=== PATIENT | female | born 1945 | race Caucasian/White ===

== ENCOUNTER → 2016-07-26 | Outpatient (CLI) | payer BC ==
[~2016-07-26] MED LIST: LOVA40TA2 PO; METF-620 PO; OMEG1CAP43 PO; VITA400C34 PO
--- NOTE | 2016-07-26 14:52 | EKG ---
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
[2016-07-26 15:04] LABS: BASO # 0.1 x10^3/uL (0.0-0.2); BASO % 1 % (0-3); EOS % 2 % (0-3); HEMATOCRIT 41.7 % (36.0-47.0); LYMPH # 4.4 x10^3/uL (1.0-4.8); LYMPH % 50 % (24-48); MEAN CORPUSCULAR HEMOGLOBIN 28 pg (25-35); MEAN CORPUSCULAR HGB CONC 34 g/dL (31-37); MEAN CORPUSCULAR VOLUME 84 fL (79-100); MONO % 6 % (0-9); NEUT % 41 % (31-73); PLATELET COUNT 248 x10^3/uL (140-400); RED BLOOD COUNT 4.99 x10^6/uL (3.50-5.40); RED CELL DISTRIBUTION WIDTH 14.3 % (11.5-14.5); WHITE BLOOD COUNT 8.9 x10^3/uL (4.0-11.0)
[2016-07-26 15:29] LABS: ALBUMIN 3.5 g/dL (3.4-5.0); ALBUMIN/GLOBULIN RATIO 0.8 (1.0-1.7); CALCIUM 8.9 mg/dL (8.5-10.1); CREATININE 0.9 mg/dL (0.6-1.0); GFR 61.9; POTASSIUM 3.6 mmol/L (3.5-5.1); TOTAL BILIRUBIN 0.8 mg/dL (0.2-1.0); TOTAL PROTEIN 7.8 g/dL (6.4-8.2)
== END | disposition home or self-care (01) ==
LOC: SURGPAT 14:02
PROVIDERS: ATTEND Obstetrics & Gynecology
DX: Z01.812 Encounter for preprocedural laboratory examination (principal); Z78.0 Asymptomatic menopausal state; E11.9 Type 2 diabetes mellitus without complications
CPT/HCPCS: 36415; 80053; 83036; 85027; 93005

== ENCOUNTER 2016-08-03 05:42 | Observation (INO) | payer BC ==
[~2016-08-03] VITALS: Ht 162.6 cm; Wt 78.9 kg
[2016-08-03] VITALS (10 sets, daily range): BP systolic 123–175; BP diastolic 56–74
[2016-08-03] MEDS ORDERED: IV RINGERS,LACTATED 1000ML 1,000 ML IV SCH (06:18)
[2016-08-03] MEDS ORDERED: ONDANSETRON PF 4 MG/2 ML VIAL. IV PRN ×2 (06:30→09:30)
[2016-08-03] MEDS ORDERED: PROCHLORPERAZINE 10 MG/2 ML VIAL. IV PRN (06:30)
[2016-08-03] MEDS ORDERED: LIDOCAINE 1% 1 ML SYRINGE. ID PRN (06:30)
[2016-08-03] MEDS ORDERED: fentaNYL PF VIAL 100 MCG/2 ML VIAL IV PRN ×2 (06:30)
[2016-08-03] MEDS ORDERED: HYDROmorphone 2 MG/ML VIAL IV PRN ×2 (06:30→09:30)
[2016-08-03] MEDS ORDERED: MORPHINE SULFATE 2 MG/ML DISP.SYRIN. IV PRN (06:30)
[2016-08-03] MEDS ORDERED: LIDOCAINE 2% PF Vial for OR 5 ML VIAL. ONE (07:12)
[2016-08-03] MEDS ORDERED: PROPOFOL 20 ML IV ONE (07:12)
[2016-08-03] MEDS ORDERED: fentaNYL PF VIAL 100 MCG/2 ML VIAL ONE ×2 (07:12→07:54)
[2016-08-03] MEDS ORDERED: ONDANSETRON PF 4 MG/2 ML VIAL. ONE (07:12)
[2016-08-03] MEDS ORDERED: DEXAMETHASONE SOD PHOS 20 MG/5 ML VIAL. ONE (07:12)
[2016-08-03] MEDS ORDERED: FAMOTIDINE 20 MG/2 ML VIAL ONE (07:12)
[2016-08-03] MEDS ORDERED: ROCURONIUM 50 MG/5 ML VIAL. ONE (07:12)
[2016-08-03] MEDS ORDERED: METHYLENE BLUE 1% 1 ML VIAL. ONE (07:14)
[2016-08-03] MEDS ORDERED: BUPIVACAINE-EPI 0.25%-1:200000 50 ML VIAL. ONE (07:14)
[2016-08-03] MEDS ORDERED: ESTROGENS, CONJ VAGINAL CREAM 30GM TUBE. ONE (07:15)
[2016-08-03] MEDS ORDERED: BUPIVACAINE-EPI 0.25%-1:200000 MPF 30 ML VIAL. ONE (07:16)
[2016-08-03] MEDS ORDERED: LABETALOL 20 MG/4 ML DISP.SYRIN. ONE (08:10)
[2016-08-03] MEDS ORDERED: DESFLURANE > 120 MINUTES IH ONE (08:34)
[2016-08-03] MEDS ORDERED: NEOSTIGMINE METHYLSULFATE 5 MG/5 ML SYRINGE. ONE (09:10)
--- NOTE | 2016-08-03 09:22 | PDOC ---
BRIEF OPERATIVE NOTE Date: August 03, 2016 Pre-Op Diagnosis pelvic organ prolapse including uterus, cystocele, rectocele, and urinary incontinence Post-Op Diagnosis same Procedure Performed lavh and bso with A and P repair Surgeon Mera Block Hand Jose Anesthesiologist Ian Anesthesia Type: General Blood Loss 50cc IV Fluid see anesthesia Urine Output see anesthesia- urine was clear throughout case Specimens Obtained uterus, tubes, ovaries Findings see dictation- prolapse Complications none TITO CARROLL MD August 03, 2016 09:22
--- NOTE | 2016-08-03 09:23 | DISCH ---
DISCHARGE INSTRUCTIONS Condition on Discharge Condition on Discharge: Stable Activity After Discharge Activity Instructions for Disc: Activity as tolerated, Progressive ambulation Lifting Instructions after Dis: No heavy lifting, No pulling or pushing, Do not lift >10 pounds Exercise Instruction after Dis: Exercise per therapy Driving Instructions after Dis: No driving for 2 weeks Weight Bearing Status after Di: Full weight bearing, As tolerated Diet after Discharge Diet after Discharge: Regular Wound Incision Care Wound/Incision Care: Ice to area for comfort Contacting the DRJoshua after DC Call your doctor for: If your condition worsens Follow-Up Follow up with: 1 week with TITO Bourne MD August 03, 2016 09:23
[2016-08-03] MEDS ORDERED: KETOROLAC TROMETHAMINE 30 MG/ML INJ. IV PRN (09:30)
[2016-08-03] MEDS ORDERED: SIMETHICONE 80 MG TAB.CHEW PO PRN (09:30)
[2016-08-03] MEDS ORDERED: diphenhydrAMINE 50 MG/ML VIAL IV PRN (09:30)
[2016-08-03] MEDS ORDERED: diphenhydrAMINE HCL 25 MG CAPSULE PO PRN (09:30)
[2016-08-03] MEDS ORDERED: IBUPROFEN 600 MG TABLET. PO PRN (09:30)
[2016-08-03] MEDS ORDERED: HYDROmorphone 2 MG/ML VIAL IM PRN (09:30)
[2016-08-03] MEDS ORDERED: oxyCODONE/APAP 5/325 1 TAB TABLET PO PRN (09:30)
[2016-08-03] MEDS ORDERED: DEXTROSE 50% 25 GM / 50ML DISP.SYRIN. IV PRN (09:30)
[2016-08-03] MEDS ORDERED: MAG HYDROX/ALUMINUM HYD/SIMETH 30 ML ORAL.SUSP PO PRN (09:30)
[2016-08-03] MEDS ORDERED: HYDROcodone/APAP 5/325MG 1 TAB TABLET PO PRN (09:30)
[2016-08-03] MEDS ORDERED: ZOLPIDEM 5 MG TABLET. PO PRN (09:30)
[2016-08-03] MEDS ORDERED: LACTULOSE 20 GM/30 ML SOLUTION. PO PRN (09:30)
[2016-08-03] MEDS ORDERED: 0.9 % SODIUM CHLORIDE 10 ML DISP.SYRIN. IV PRN (09:30)
[2016-08-03] MEDS ORDERED: METOCLOPRAMIDE HCL 10 MG/2 ML VIAL. IV PRN (09:30)
[2016-08-03] MEDS ORDERED: BISACODYL 10 MG SUPP.RECT. PR PRN (09:30)
[2016-08-03] MEDS ORDERED: NALOXONE 0.4 MG/ML VIAL. IV PRN (09:30)
[2016-08-03] MEDS ORDERED: ALBUTEROL SULFATE 2.5 MG/3 ML NEBU. NEB PRN (09:30)
[2016-08-03] MEDS ORDERED: CALCIUM CARBONATE 500 MG TAB.CHEW PO PRN (09:30)
[2016-08-03] MEDS: INSULIN ASPART 300 UNITS/3 ML INSULN.PEN SQ SCH (12:00)
--- NOTE | 2016-08-03 12:28 | OP ---
DATE OF SURGERY: PREOPERATIVE DIAGNOSES: Pelvic organ prolapse, including uterus, cystocele, rectocele, and urinary incontinence. POSTOPERATIVE DIAGNOSES: Pelvic organ prolapse, including uterus, cystocele, rectocele, and urinary incontinence. PROCEDURE: Laparoscopic-assisted vaginal hysterectomy with bilateral salpingo-oophorectomy, anterior and posterior repair. SURGEON: Adriana Carroll MD ANESTHESIA: General. COMPLICATIONS: None. ESTIMATED BLOOD LOSS: 50 mL. URINE OUTPUT: Normal and clear throughout the case. SPECIMENS OBTAINED: Uterus, tubes, and ovaries. COMPLICATIONS: None. DESCRIPTION OF PROCEDURE: After informed consent was obtained, the patient was taken to the operating room and given a smooth induction of anesthesia without complications. Her legs were placed in Michael stirrups and her abdomen, perineum, and vagina were prepped and draped in the usual sterile fashion. She received a gram of Ancef prior to the procedure. A Alvarado catheter was placed. A weighted speculum was placed in the vagina and the anterior lip of the cervix was grasped with a single tooth tenaculum. Cervix was injected with 0.25% Marcaine at 2, 4, 8 and 10 o'clock on the cervix; 10 mL was used. The Valtchev was placed through the cervical os and attached to the tenaculum, the speculum was removed. I changed gloves and went above. A 5 mm incision was made at the umbilicus. The bladeless trocar was placed down through this incision. The camera confirmed good trocar placement. The patient was placed in Trendelenburg. The uterus was noted to be normal in size and appearance with a small fibroid on the anterior surface. Both ovaries were noted to be atrophic and tubes were noted to be normal. We placed two lateral ports under direct visualization and the LigaSure was placed on the right sided port. We cauterized across the round ligament on the right side and then created a window in the medial leaf of the broad ligament. We then elevated the tube and ovary to visualize the ureter. Once the uterus visualized, we cauterized across the IP ligament to free the ovary from the sidewall. Once the ovary was free, we cauterized down the branches of the uterine vessels on the right side all the way down to the uterosacral ligament. The exact same procedure was carried out on the opposite side. There was a little bit of adhesions between the bowel and the sidewall on the left side; however, we left ____ way. Once we freed the uterus down to the level of uterosacral ligaments, we went below. The weighted speculum was placed back in the vagina and the tenaculum and Valtchev were removed and replaced by two Boni thyroid clamps. We created a circumferential incision around the cervix and retracted the bladder superiorly using blunt dissection with a Ray-Sarah. The posterior peritoneum was entered bluntly and tagged to the posterior vaginal wall. This was saved for later use. We then proceeded to place a Marito speculum intraperitoneally. We proceeded to cauterize, clamp, cut and ligate the uterosacral cardinal complex on both sides. These were tied to the lateral vaginal sidewalls and saved for later use. We then proceeded to cauterize the rest of the uterine attachments of the sides of the uterus. Once the uterus was free, it was removed. No bleeding was noted. The peritoneum was closed with a running pursestring suture of 2-0 Vicryl. At this point, we placed two Rod clamps on the edge of the anterior vaginal wall at the cuff. We then injected solution of anesthetic into the anterior vaginal wall; this was used to delineate the surgical planes. The vagina was then opened in the midline. Bladder was then retracted off of the vagina and dissected off the vagina. We then closed the cystocele defect with interrupted mattress sutures ____ was used to close the defect. The vagina was then trimmed and closed in the midline with a running locking suture of 2-0 Vicryl. We then closed the remainder of the cuff as well. We normally ready for hysterectomy. Once the cuff was closed, we created a triangular incision at the perineal body and removed a piece of the skin. We injected the posterior vaginal wall with the solution of anesthetic and opened the posterior vaginal wall in the midline. We dissected the rectum off of the posterior vaginal wall. We then placed several jzzqsw-bh-flkyr mattress sutures in this area as well to decrease the rectocele defect. The vagina was then trimmed and the rectocele with the posterior vaginal wall was then closed with running locking stitch of 2-0 Vicryl. Good hemostasis was noted. Once we got to the perineal body, we dipped below the perineal body and came out on just under the edge of the skin and closed the skin in a running fashion; likely would have done for an episiotomy. Once this was done, the vagina was packed with 0.5-inch gauze with impregnated with Premarin cream. We then went back above to irrigate the pelvis. The pelvis was irrigated and no bleeding was noted. We then sprayed Tisseel on the raw surfaces; again no bleeding was noted. At this point, the procedure was terminated. The trocars were removed under direct visualization. We did look up in the upper abdomen along the paracolic gutters, but no blood was noted. Once the trocars were removed, the gas was allowed to escape and the port sites were closed with an interrupted suture of 4-0 nylon and infiltrated with anesthetic for patient comfort. The patient tolerated the procedure well. There were no complications. ADRIANA CARROLL MD DR: SHIRLEY/angel JOB#: [id number] / [id number]
[2016-08-03] MEDS ORDERED: metFORMIN 500 MG TABLET PO SCH (21:00)
[2016-08-03] MEDS ORDERED: ATORVASTATIN CALCIUM 10 MG TABLET. PO SCH (21:00)
[2016-08-04 02:35] VITALS: BP 131/61
[2016-08-04 04:37] LABS: CALCIUM 8.4 mg/dL (8.5-10.1); CREATININE 0.8 mg/dL (0.6-1.0); GFR 70.9; POTASSIUM 4.1 mmol/L (3.5-5.1)
[2016-08-04] MEDS: INSULIN ASPART 300 UNITS/3 ML INSULN.PEN SQ SCH (08:00)
--- NOTE | 2016-08-04 08:23 | PDOC ---
SURGICAL PROGRESS NOTE Subjective Doing well. No problems. Eating and tolerating pain meds. Hasn't taken any narcotics. Minimal bleeding Vital Signs Vital Signs Date Time Temp Pulse Resp B/P (MAP) Pulse Ox O2 Delivery O2 Flow Rate FiO2 08/04/16 02:35 98.1 71 16 131/61 (84) 92 Room Air 98.1 08/03/16 13:47 2.0 I&O Intake and Output 08/04/16 07:00 Intake Total 3585 ml Output Total 2690 ml Balance 895 ml Intake Oral 1535 ml IV Total 1000 ml Other 1050 ml Output Urine Total 2650 ml Estimated Blood Loss 40 ml PATIENT HAS A FOSTER: No General: Alert, Oriented X3, Cooperative, No acute distress HEENT: Mucous membr. moist/pink Lungs: Clear to auscultation, Normal air movement Heart: Regular rate, Normal S1, Normal S2, No murmurs Abdomen: Normal bowel sounds, Soft, No tenderness, No hepatosplenomegaly, No masses, Other (soft, NT, no masses. Incisions c/d/i) Extremities: No clubbing, No cyanosis, No edema, Normal pulses, No tenderness/ swelling Labs Laboratory Tests Test 08/03/16 06:58 08/03/16 10:08 08/03/16 12:17 08/04/16 03:53 Glucose (Fingerstick) 101 mg/dL (70-99) 189 mg/dL (70-99) 164 mg/dL (70-99) Hematocrit 36.6 % (36.0-47.0) Sodium Level 143 mmol/L (136-145) Potassium Level 4.1 mmol/L (3.5-5.1) Chloride Level 107 mmol/L (98-107) Carbon Dioxide Level 28 mmol/L (21-32) Anion Gap 8 (6-14) Blood Urea Nitrogen 12 mg/dL (7-20) Creatinine 0.8 mg/dL (0.6-1.0) Estimated GFR (Cockcroft-Gault) 70.9 Glucose Level 141 mg/dL (70-99) Calcium Level 8.4 mg/dL (8.5-10.1) Laboratory Tests Test 08/03/16 10:08 08/03/16 12:17 08/04/16 03:53 Glucose (Fingerstick) 189 mg/dL (70-99) 164 mg/dL (70-99) Hematocrit 36.6 % (36.0-47.0) Sodium Level 143 mmol/L (136-145) Potassium Level 4.1 mmol/L (3.5-5.1) Chloride Level 107 mmol/L (98-107) Carbon Dioxide Level 28 mmol/L (21-32) Anion Gap 8 (6-14) Blood Urea Nitrogen 12 mg/dL (7-20) Creatinine 0.8 mg/dL (0.6-1.0) Estimated GFR (Cockcroft-Gault) 70.9 Glucose Level 141 mg/dL (70-99) Calcium Level 8.4 mg/dL (8.5-10.1) I have reviewed the following labs, vitals Problem List POD #1 from ubaldo rey and A and p repair. Plan for discharge to home Problems: TITO CARROLL MD August 04, 2016 08:23
--- NOTE | 2016-08-04 08:28 | PDOC3 ---
Discharge Summary Visit Information Date of Admission: August 04, 2016 Date of Discharge: August 04, 2016 Admitting Diagnosis: see list Brief Hospital Course Allergies Allergies Coded Allergies Type Severity Reaction Last Updated Verified No Known Drug Allergies 08/03/16 No Vital Signs Vital Signs Date Time Temp Pulse Resp B/P (MAP) Pulse Ox O2 Delivery O2 Flow Rate FiO2 08/04/16 02:35 98.1 71 16 131/61 (84) 92 Room Air 98.1 08/03/16 13:47 2.0 Lab Results Laboratory Tests Test 08/03/16 06:58 08/03/16 10:08 08/03/16 12:17 08/04/16 03:53 Glucose (Fingerstick) 101 mg/dL (70-99) 189 mg/dL (70-99) 164 mg/dL (70-99) Hematocrit 36.6 % (36.0-47.0) Sodium Level 143 mmol/L (136-145) Potassium Level 4.1 mmol/L (3.5-5.1) Chloride Level 107 mmol/L (98-107) Carbon Dioxide Level 28 mmol/L (21-32) Anion Gap 8 (6-14) Blood Urea Nitrogen 12 mg/dL (7-20) Creatinine 0.8 mg/dL (0.6-1.0) Estimated GFR (Cockcroft-Gault) 70.9 Glucose Level 141 mg/dL (70-99) Calcium Level 8.4 mg/dL (8.5-10.1) Laboratory Tests Test 08/03/16 10:08 08/03/16 12:17 08/04/16 03:53 Glucose (Fingerstick) 189 mg/dL (70-99) 164 mg/dL (70-99) Hematocrit 36.6 % (36.0-47.0) Sodium Level 143 mmol/L (136-145) Potassium Level 4.1 mmol/L (3.5-5.1) Chloride Level 107 mmol/L (98-107) Carbon Dioxide Level 28 mmol/L (21-32) Anion Gap 8 (6-14) Blood Urea Nitrogen 12 mg/dL (7-20) Creatinine 0.8 mg/dL (0.6-1.0) Estimated GFR (Cockcroft-Gault) 70.9 Glucose Level 141 mg/dL (70-99) Calcium Level 8.4 mg/dL (8.5-10.1) Brief Hospital Course Ms. Braga is a 70 old F who presented with history of prolapse. She presented yesterday for lavh and bso with a and p repair. She has done well post op. She has refused all blood sugar checking and the sliding scale insulin ordered. Pt is having minimal bleeding. Is tolerating her diet and ambulating. Alvarado was taken out this morning. If pt is able to void well, will be discharged. Hct is 36.6 Discharge Information Condition at Discharge: Improved Follow Up: Weeks (1 week in office) Disposition/Orders: D/C to Home Scheduled Lovastatin (Lovastatin), 1 TAB PO DAILY, (Reported) Metformin Hcl (Metformin Hcl), 500 MG PO HS, (Reported) Totz-3/Dha/Epa/Fish Oil (Fish Oil 1,400 Mg Softgel), 1 EACH PO HS, (Reported) Vitamin E Acetate (Vitamin E), 400 UNIT PO DAILY, (Reported) TITO CARROLL MD August 04, 2016 08:28
[2016-08-04] MEDS ORDERED: OXYC1TAB7 PO (08:31)
[2016-08-04 10:30] VITALS: BP 135/73
--- NOTE | 2016-08-07 15:21 | PATHOLOGY ---
PATHOLOGY REPORT * * * * * * * * FINAL DIAGNOSIS: Uterus and attached bilateral fallopian tubes and ovaries, laparoscopic assisted vaginal hysterectomy with bilateral salpingo-oophorectomy: - Leiomyomas, uterine corpus, subserosal and intramural, several, the largest measuring 1.8 cm in greatest dimension. - Mild chronic cervicitis with focal squamous metaplasia. - Nabothian cysts, cervix, small. - Cystic atrophy of endometrium. - Adenomyosis, uterine corpus. - Involutional changes of bilateral fallopian tubes. - Involutional changes of bilateral ovaries. COMMENT: There is no evidence of malignancy. REPORT ELECTRONICALLY SIGNED BY: Juan Espinosa M.D. DATE/TIME: 08/07/2016 15:20 * * * * * * * * GROSS PATHOLOGY: Received in formalin, labeled "Madeleine Braga-uterus, cervix, bilateral ovary and tube" is a hysterectomy specimen (74 g, 9.0 x 3.5 x 3.5 cm). The serosa is kitchen-brown, smooth and glistening and features a 1.8 cm subserosal nodule on the anterior aspect. The cervix is kitchen-yellow and smooth to wrinkled with areas of apparent punctate hemorrhage. The cervix measures 2.9 x 2.2 cm and features a 1.0 cm round os. The cervical os is probe patent, and the uterus is bisected coronally to reveal a 3.5 x 2.4 cm endometrial cavity. The uterus is serially sectioned to reveal an average endometrial thickness of 0.1 cm and an average myometrial thickness of approximately 1.6 cm. The uterus reveals 3 yellow-kitchen, whorled nodules (2 intramural and 1 subserosal), grossly consistent with leiomyomata measuring up to 1.8 cm in greatest dimension. No discrete hemorrhage or necrosis is grossly identified within the leiomyomata. Additionally, the uterine myometrium features an irregular, trabeculated appearance, grossly suggestive of areas of adenomyosis. Attached to the uterus is the right tube (3.8 cm in length by 0.6 cm in average diameter), the right ovary (1.5 x 0.8 x 0.7 cm), the left tube (3.9 cm in length by 0.5 cm in average diameter), and left ovary (1.7 x 0.8 x 0.7 cm). The bilateral tubes feature multiple paratubal cysts (measuring up to 0.6 cm in greatest dimension) and a blunt appearance at the proximal aspect, grossly suggestive of a previous bilateral tubal ligation. The tubes are sectioned and appear otherwise grossly unremarkable. The ovaries are bivalved and also appear grossly unremarkable. Cut Off Machine Operator sections are submitted as follows: A1-bilingual call center representative sections of anterior cervix A2-bilingual call center representative sections of posterior cervix I0-T3-aoootvxysiwzjx sections of anterior uterus (including bilingual call center representative sections of 2 leiomyomata) A5-bilingual call center representative section of posterior uterus A6-bilingual call center representative sections of right tube A7-entire right ovary A8-bilingual call center representative sections of left tube A9-entire left ovary (JAISON; 08/04/2016) INITIAL CPT CODE(S): A; 62764 Professional services performed by [employer] at [address] [address] Technical services performed by [employer] at [address] [place] [address] [address], [place] [address]. SPECIMEN(S) RECEIVED: A.Uterus, cervix, bilateral ovary and tube CLINICAL HISTORY: Prolapse, uterovaginal cystocele, rectocele, atrophic vaginitis, uterocele, hypermobility ureteral PATIENT: MADELEINE BRAGA /AGE: 9 1945 (Age: 70) PATIENT #: [id number] ALT CASE #: SPECIMEN COLLECTION DATE: 08/03/2016 SPECIMEN RECEIVED DATE: 08/03/2016 [facility] - [address] [place] [address] - PHONE: [phone] * * * END OF REPORT * * *
== END 2016-08-04 11:20 | disposition home or self-care (01) ==
LOC: SURG 05:42 → 3 NORTH 09:46
PROVIDERS: ADMIT Obstetrics & Gynecology; ATTEND Obstetrics & Gynecology
DX: N81.4 Uterovaginal prolapse, unspecified (principal); N81.10 Cystocele, unspecified; N81.6 Rectocele; R32 Unspecified urinary incontinence; K66.0 Peritoneal adhesions (postprocedural) (postinfection)
CPT/HCPCS: 36415; 57260; 58552; 80048; 82947; 85014; 86850; 86900; 86901; 96374; C1769; G0378; G0379; J1100; J1815; J1885; J2405; J2704; J2710; J3010; J3490; J7030; S0028; Q9968

== ENCOUNTER 2017-02-27 12:05 | Emergency (ER) | payer BC ==
[~2017-02-27] VITALS: Ht 171.4 cm; Wt 78.9 kg
[~2017-02-27 12:05] MED LIST changes: +OXYC1TAB7 PO; -VITA400C34 PO; +VITA400C37 PO
[2017-02-27] MEDS ORDERED: IV NORMAL SALINE 1000ML BAG 1,000 ML IV ONE ×2 (12:30→14:15)
--- NOTE | 2017-02-27 12:33 | PHYS DOC ---
Past Medical History Past Medical History: Diabetes-Type II, High Cholesterol Past Surgical History: Hysterectomy, Knee Replacement Additional Past Surgical Histo: L shoulder surgery Alcohol Use: None Drug Use: None Adult General Chief Complaint Chief Complaint: NEAR SYNCOPE HPI HPI Patient is a 71 year old F who presents with generalized weakness and near- syncope. Patient was standing in line at [facility] and became lightheaded and dizzy and almost passed out. Workers there helped her to a chair and called EMS initial blood pressure was in the 80s systolic. Patient states for the past day she's had cough/cold congestion and noted that her and grandchild have also been sick with what she described as the flu. Patient denies any fevers. Patient is asymptomatic in the emergency room with a systolic blood pressure in the 140s. Patient denies any chest pain or shortness of breath. Patient denies any nausea/vomiting/diarrhea. Patient has no other complaints. Review of Systems Review of Systems GEN: Generalized weakness HEENT: Denies blurred vision, sore throat CV: Denies chest pain RESP: Denies shortness of air, cough GI: Denies n/v/d NEURO: Denies confusion, dizziness MSK: Denies weakness, joint pain/swelling All other systems were reviewed and found to be within normal limits, except as documented in this note. Current Medications Current Medications Current Medications Medications (Trade) Dose Ordered Sig/Javed Start Time Stop Time Status Last Admin Dose Admin Sodium Chloride 1,000 ml @ 1,000 mls/hr 1X ONCE 02/27/17 14:15 02/27/17 15:14 DC 02/27/17 15:00 1,000 MLS/HR Allergies Allergies Allergies Coded Allergies Type Severity Reaction Last Updated Verified No Known Drug Allergies 02/27/17 No Physical Exam Physical Exam GEN.: No apparent distress. Alert and oriented. HEENT: Head is normocephalic, atraumatic NECK: Supple. LUNGS: CTAB. HEART: RRR, S1, S2 present. Peripheral pulses intact ABDOMEN: Soft, nontender. Positive bowel sounds. EXTREMITIES: Without any cyanosis. NEUROLOGIC: Normal speech, normal tone PSYCHIATRIC: Normal affect, normal mood. SKIN: No ulcerations Current Patient Data Vital Signs Vital Signs Date Time Temp Pulse Resp B/P (MAP) Pulse Ox O2 Delivery O2 Flow Rate FiO2 02/27/17 12:05 97.7 73 18 140/65 (90) 95 Room Air 97.7 Lab Values Laboratory Tests Test 02/27/17 12:45 02/27/17 12:48 02/27/17 14:15 White Blood Count 12.4 x10^3/uL (4.0-11.0) H Red Blood Count 5.00 x10^6/uL (3.50-5.40) Hemoglobin 14.1 g/dL (12.0-15.5) Hematocrit 43.6 % (36.0-47.0) Mean Corpuscular Volume 87 fL (79-100) Mean Corpuscular Hemoglobin 28 pg (25-35) Mean Corpuscular Hemoglobin Concent 32 g/dL (31-37) Red Cell Distribution Width 13.9 % (11.5-14.5) Platelet Count 212 x10^3/uL (140-400) Neutrophils (%) (Auto) 78 % (31-73) H Lymphocytes (%) (Auto) 16 % (24-48) L Monocytes (%) (Auto) 5 % (0-9) Eosinophils (%) (Auto) 1 % (0-3) Basophils (%) (Auto) 1 % (0-3) Neutrophils # (Auto) 9.7 x10^3uL (1.8-7.7) H Lymphocytes # (Auto) 1.9 x10^3/uL (1.0-4.8) Monocytes # (Auto) 0.6 x10^3/uL (0.0-1.1) Eosinophils # (Auto) 0.1 x10^3/uL (0.0-0.7) Basophils # (Auto) 0.1 x10^3/uL (0.0-0.2) Sodium Level 143 mmol/L (136-145) Potassium Level 4.3 mmol/L (3.5-5.1) Chloride Level 106 mmol/L (98-107) Carbon Dioxide Level 27 mmol/L (21-32) Anion Gap 10 (6-14) Blood Urea Nitrogen 18 mg/dL (7-20) Creatinine 0.9 mg/dL (0.6-1.0) Estimated GFR (Cockcroft-Gault) 61.7 BUN/Creatinine Ratio 20 (6-20) Glucose Level 163 mg/dL (70-99) H Calcium Level 8.4 mg/dL (8.5-10.1) L Total Bilirubin 0.7 mg/dL (0.2-1.0) Aspartate Amino Transferase (AST) 22 U/L (15-37) Alanine Aminotransferase (ALT) 37 U/L (14-59) Alkaline Phosphatase 118 U/L (46-116) H Total Protein 7.2 g/dL (6.4-8.2) Albumin 3.5 g/dL (3.4-5.0) Albumin/Globulin Ratio 0.9 (1.0-1.7) L Influenza Type A Antigen Negative (NEGATIVE) Influenza Type B Antigen Negative (NEGATIVE) Urine Color Yellow Urine Clarity Clear Urine pH 5.5 Urine Specific Miles 1.020 Urine Protein Negative mg/dL (NEG-TRACE) Urine Glucose (UA) Negative mg/dL (NEG) Urine Ketones (Stick) Negative mg/dL (NEG) Urine Blood Trace (NEG) Urine Nitrite Negative (NEG) Urine Bilirubin Negative (NEG) Urine Urobilinogen Dipstick 0.2 mg/dL (0.2 mg/dL) Urine Leukocyte Esterase Small (NEG) Urine RBC Occ /HPF (0-2) Urine WBC 5-10 /HPF (0-4) Urine Squamous Epithelial Cells Mod /LPF Urine Bacteria Moderate /HPF (0-FEW) Urine Hyaline Casts Occasional /HPF Urine Mucus Mod /LPF Laboratory Tests 02/27/17 12:45 Laboratory Tests 02/27/17 12:45 EKG EKG 1213: EKG shows normal sinus rhythm rate of 75 no STEMI[] Radiology/Procedures Radiology/Procedures Chest x-ray NAD[] Course & Med Decision Making Course & Med Decision Making Pertinent Labs and Imaging studies reviewed. (See chart for details) ED course: Patient was seen and examined emergency room basic blood work was ordered along with a chest x-ray and EKG and a UA Patient received 2 L normal saline boluses and is asymptomatic on reexamination , patient's blood pressures of been in the 140s systolic Patient was ambulated around the nurse's station without any difficulties and reexamination patient feels back to normal and is asymptomatic at go home. MDM: After reviewing the chart, CC/HPI/PMH, physical exam, [lab results], [ radiological results], I do not believe the patient has emergent medical condition warranting further workup and/or admission at this time. On reexamination patient's asymptomatic and able to ambulate without any difficulty. Patient is comfortable going home. Patient stable for discharge. Additional verbal discharge instructions were provided to the patient and that if symptoms get worse or any new symptoms arise that are worrisome to the patient she is to return to the emergency room immediately [] Dragon Disclaimer Dragon Disclaimer This electronic medical record was generated, in whole or in part, using a voice recognition dictation system. Departure Departure Impression: Primary Impression: Near syncope Disposition: 01 HOME, SELF-CARE Condition: IMPROVED Referrals: CHANG VALDIVIA MD (PCP) Patient Instructions: Near-Syncope Additional Instructions: Please follow up with your family doctor in 1-2 days YI SCOTT DO Feb 27, 2017 12:33
--- NOTE | 2017-02-27 12:49 | RAD ---
Portable chest, 02/27/2017: History: Near syncope Comparison is made to a study from 03/29/2013. The heart size and pulmonary vascularity are normal. No pulmonary infiltrates are seen. There is no evidence of pleural fluid. Moderate spurring is present in the spine. IMPRESSION: No acute cardiopulmonary abnormality is detected.
[2017-02-27 12:57] LABS: BASO # 0.1 x10^3/uL (0.0-0.2); BASO % 1 % (0-3); EOS % 1 % (0-3); HEMATOCRIT 43.6 % (36.0-47.0); HEMOGLOBIN 14.1 g/dL (12.0-15.5); LYMPH # 1.9 x10^3/uL (1.0-4.8); LYMPH % 16 % (24-48); MEAN CORPUSCULAR HEMOGLOBIN 28 pg (25-35); MEAN CORPUSCULAR HGB CONC 32 g/dL (31-37); MEAN CORPUSCULAR VOLUME 87 fL (79-100); MONO % 5 % (0-9); NEUT % 78 % (31-73); PLATELET COUNT 212 x10^3/uL (140-400); RED CELL DISTRIBUTION WIDTH 13.9 % (11.5-14.5); WHITE BLOOD COUNT 12.4 x10^3/uL (4.0-11.0)
--- NOTE | 2017-02-27 13:03 | EKG ---
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
[2017-02-27 13:08] LABS: CALCIUM 8.4 mg/dL (8.5-10.1); CREATININE 0.9 mg/dL (0.6-1.0); GFR 61.7; POTASSIUM 4.3 mmol/L (3.5-5.1)
[2017-02-27 13:14] LABS: ALBUMIN 3.5 g/dL (3.4-5.0); ALBUMIN/GLOBULIN RATIO 0.9 (1.0-1.7); TOTAL BILIRUBIN 0.7 mg/dL (0.2-1.0); TOTAL PROTEIN 7.2 g/dL (6.4-8.2)
[2017-02-27 13:26] LABS: OBC FLU VALID
[2017-02-27 14:27] LABS: BILIRUBIN,URINE NEGATIVE (NEG); GLUCOSE,URINE NEGATIVE (NEG); NITRITE,URINE NEGATIVE (NEG); PH,URINE 5.5; PROTEIN,URINE NEGATIVE (NEG-TRACE); UROBILINOGEN,URINE 0.2 mg/dL (0.2 mg/dL)
[2017-02-27 15:00] VITALS: BP 154/59
[2017-02-27 15:13] LABS: BACTERIA,URINE MODERATE /HPF (0-FEW); RBC,URINE OCC /HPF (0-2); SQUAMOUS EPITHELIAL CELL,UR MOD /LPF
--- NOTE | 2017-03-02 14:01 | VNOTE ---
CALL BACK NOTE CALL BACK Microbiology 02/27/17 Urine Culture - Final, Complete 02/27/17 Urine Culture Result 1 (PAULO) - Final, Complete 02/27/17 Antimicrobic Susceptibility - Final, Complete Patient's urine culture was positive for Escherichia coli. Spoke with patient about results. Patient is a symptomatic. She'll follow-up with her PCP as needed. ALIDA GOMEZ APRN Mar 02, 2017 14:01
== END 2017-02-27 15:40 | disposition home or self-care (01) ==
LOC: ER 12:05
DX: R55 Syncope and collapse (principal); R53.1 Weakness; R05 Cough; R42 Dizziness and giddiness; R09.81 Nasal congestion; E78.00 Pure hypercholesterolemia, unspecified; E11.9 Type 2 diabetes mellitus without complications; Z90.710 Acquired absence of both cervix and uterus
CPT/HCPCS: 36415; 71010; 80053; 81001; 85025; 87086; 87804; 93005; 96360; 96361; 99285; J7030

== ENCOUNTER 2019-09-20 07:59 | Emergency (ER) | payer BC ==
[~2019-09-20] VITALS: Ht 160 cm; Wt 65.9 kg
[~2019-09-20 07:59] MED LIST changes: -METF-620 PO; +METF10007 PO
[2019-09-20] MEDS ORDERED: MECLIZINE HCL 12.5 MG TABLET. PO ONE (08:15)
[2019-09-20] MEDS ORDERED: IV NORMAL SALINE 1000ML BAG 1,000 ML IV ONE (08:15)
--- NOTE | 2019-09-20 08:39 | PHYS DOC ---
Past Medical History Past Medical History: Diabetes-Type II, High Cholesterol Past Surgical History: Hysterectomy, Knee Replacement Additional Past Surgical Histo: L shoulder surgery Smoking Status: Never Smoker Alcohol Use: None Drug Use: None General Adult EDM: Chief Complaint: DIZZY/LIGHT HEADED HPI: HPI: Patient is a 73 year old female who presents with dizziness that started when she woke up this morning. She states she went to bed around 10 PM last night and felt fine at that time. She states if she tries to stand she feels like she will fall over. She has some associated nausea. Denies any vomiting, trauma, numbness, weakness, visual changes, confusion. She does mention she has lost a large amount of weight over the last six months and she forgot to take her blood pressure medication yesterday. Review of Systems: Review of Systems: General: Denies fever, chills, sweats, fatigue Eyes: Denies drainage, blurred vision HENT: Denies rhinorrhea, sore throat Respiratory: Denies cough, shortness of breath, wheezing Cardiac: Denies edema, palpitations, chest pain GI: Denies abdominal pain, N/V MSK: Denies back pain, neck pain Skin: Denies rash, jaundice Neuro: Denies headache.reports dizziness Psychiatric: Denies SI/HI Heart Score: Risk Factors: Risk Factors: DM, Current or recent (<one month) smoker, HTN, HLP, family history of CAD, obesity. Risk Scores: Score 0 - 3: 2.5% MACE over next 6 weeks - Discharge Home Score 4 - 6: 20.3% MACE over next 6 weeks - Admit for Clinical Observation Score 7 - 10: 72.7% MACE over next 6 weeks - Early Invasive Strategies Allergies: Allergies: Allergies Coded Allergies Type Severity Reaction Last Updated Verified No Known Drug Allergies 02/27/17 No Physical Exam: PE: Constitutional: Well developed, well nourished, Cooperative, NAD, non-toxic appearing HEENT: Normocephalic, atraumatic, oropharynx moist, EOMI, PERRL, no nystagmus, no drainage from eyes, normal conjunctiva Neck: Supple, normal range of motion, no stridor Cardiovascular: RRR, 2+ radial pulses bilaterally, no edema Respiratory: CTA bilaterally, no respiratory distress, no wheezing/crackles Abdomen: Soft, nontender, nondistended, no masses Skin: Warm, dry, intact Extremities: No obvious deformities Neurologic: Alert and Oriented x3, motor and sensory function grossly normal, no focal deficits, CN 2-12 intact, slow cerebellar testing otherwise normal Psychologic: Normal affect, normal judgment, normal mood. No SI/HI EKG: EKG: [] Radiology/Procedures: Radiology/Procedures: [] Course & Med Decision Making: Course & Med Decision Making Pertinent Labs and Imaging studies reviewed. (See chart for details) Patient is a 73 year old female with a history of diabetes and hypertension who presents to the Emergency Room complaining of dizziness with associated nausea. History and physical significant for weight loss, mild slow cognition. Patient did not have difficulty doing cerebellar testing, however she did them slowly. She also did not have nystagmus. It is unclear if her dizziness is central or if she has more lightheadedness from a metabolic process. CT head and CT angio head/neck will be ordered to rule out vertebral artery dissection, posterior c irculation large vessel occlusion, mass, bleed. CBC, BMP, troponin, chest xray, EKG will be ordered to evaluate for other causes of dizziness including ACS, hyperglycemia, hypoglycemia, electrolyte abnormalities, DONTAE, anemia. She will be given fluids and meclizine. Work-up suggests mild dehydration but is otherwise normal. Patient symptoms improved with meclizine. She is walking with a steady gait at this time and is feeling much better. She would like to go home. Patient's test results and vitals while in the ED were fully reviewed and discussed with the patient. Patient is stable and at this time does not need admission to the hospital. We have discussed strict return precautions and the importance of following up with their Primary Care Physician. Patient stated understanding and was given an opportunity to ask any questions. Patient is in agreement with plan. Dragon Disclaimer: Dragon Disclaimer: This electronic medical record was generated, in whole or in part, using a voice recognition dictation system. Departure Departure Impression: Primary Impression: Dizziness Disposition: HOME, SELF-CARE Referrals: CHANG VALDIVIA MD (PCP) Patient Instructions: Dizziness Scripts Meclizine Hcl (MECLIZINE HCL) 25 Mg Tablet 1 TAB PO TID PRN for Dizziness, #90 TAB Prov: EMMANUEL LUCERO MD 09/20/19 Justicifation of Admission Dx: Justifications for Admission: Justification of Admission Dx: Yes EMMANUEL LUCERO MD Sep 20, 2019 08:39
--- NOTE | 2019-09-20 08:40 | RAD ---
Examination: PORTABLE CHEST 1V History: Reason: dizzy / Spl. Instructions: / History: Comparison/Correlation: None Findings: Upright frontal view of the chest was obtained. Heart size and pulmonary vasculature are normal. No infiltrate or pleural effusion. No pneumothorax. Bony structures are unremarkable for the patient's age. Impression: No active disease. Electronically signed by: Nigel Patel MD (09/20/2019 8:37 AM) [id number]
[2019-09-20 08:45] LABS: BASO # 0.1 x10^3/uL (0.0-0.2); BASO % 1 % (0-3); EOS # 0.1 x10^3/uL (0.0-0.7); EOS % 1 % (0-3); HEMOGLOBIN 13.6 g/dL (12.0-15.5); LYMPH # 2.3 x10^3/uL (1.0-4.8); LYMPH % 23 % (24-48); MEAN CORPUSCULAR HEMOGLOBIN 28 pg (25-35); MEAN CORPUSCULAR HGB CONC 33 g/dL (31-37); MEAN CORPUSCULAR VOLUME 84 fL (79-100); MONO # 0.6 x10^3/uL (0.0-1.1); MONO % 6 % (0-9); NEUT # 7.1 x10^3/uL (1.8-7.7); NEUT % 70 % (31-73); PLATELET COUNT 350 x10^3/uL (140-400); RED BLOOD COUNT 4.91 x10^6/uL (3.50-5.40); RED CELL DISTRIBUTION WIDTH 14.2 % (11.5-14.5); WHITE BLOOD COUNT 10.2 x10^3/uL (4.0-11.0)
[2019-09-20 08:57] LABS: CALCIUM 8.6 mg/dL (8.5-10.1); CREATININE 0.8 mg/dL (0.6-1.0); GFR 70.3; POTASSIUM 3.3 mmol/L (3.5-5.1)
[2019-09-20] MEDS ORDERED: CONTRAST GIVEN. MC PRN (09:15)
[2019-09-20] MEDS ORDERED: IOHEXOL 300 MG/ML 100ML VIAL. IV ONE (09:15)
[2019-09-20 09:16] LABS: BILIRUBIN,URINE NEGATIVE (NEG); CLARITY,URINE CLEAR; COLOR,URINE YELLOW; NITRITE,URINE NEGATIVE (NEG); PROTEIN,URINE NEGATIVE (NEG-TRACE)
[2019-09-20 09:34] LABS: BACTERIA,URINE MOD /HPF (0-FEW); RBC,URINE OCC /HPF (0-2); SQUAMOUS EPITHELIAL CELL,UR MOD /LPF
--- NOTE | 2019-09-20 10:16 | RAD ---
Examination: CT HEAD WO CONTRAST History: Reason: severe new onset dizziness / Spl. Instructions: / History: Comparison/Correlation: 03/29/2013 CT head without contrast Findings: Axial images of the head were obtained without contrast. Ventricles are normal size. No intracranial hemorrhage, midline shift, or mass effect. Cavernous carotid calcifications are present. Chronic ischemic changes of the right matter noted. Minimal opacification of the left ethmoid air cells anteriorly noted. Mastoid air cells are clear. External auditory canals are unremarkable. Impression: No suspicious process. Electronically signed by: Nigel Patel MD (09/20/2019 10:13 AM) [id number]
--- NOTE | 2019-09-20 10:29 | RAD ---
Examination: CT ANGIOGRAPHY HEAD AND NECK History: Reason: severe new onset dizziness / Spl. Instructions: OMNI 300 75ML / History: Comparison/Correlation: None EXAM: 1. CTA HEAD WITH AND WITHOUT CONTRAST. 2. CTA NECK WITH AND WITHOUT CONTRAST. TECHNIQUE: Computed tomographic angiography of the head and neck was performed following IV contrast according to arteriography protocol. Three-dimensional reconstructions were also performed. Maximum intensity projection images were provided. FINDINGS: Angiographic findings: The aortic arch has a typical branching pattern. There is no arch vessel stenosis. Calcific involvement of the aortic arch is present. Both common carotid arteries are patent without stenosis. Both internal carotid arteries are patent without stenosis. The external carotid systems are patent. The vertebral arteries are patent. The left vertebral artery tapers significantly at its junction with the right vertebral artery to form the basilar artery. There is no plaque identified causing this narrowed appearance. This finding most likely represents a developmental appearance. The basilar artery is patent. Both posterior cerebral arteries are patent. The posterior communicating arteries are visualized. The intracranial internal carotid arteries demonstrate no stenosis. The middle cerebral arteries are patent. The anterior cerebral arteries are patent. The anterior communicating artery is visualized. Nonangiographic findings: There is no intracranial hemorrhage. Guzman-white differentiation is preserved. The ventricles are normal in size and position. Mild chronic ischemic change in the white matter is present. Minimal opacification of the maxillary sinuses is seen.. The orbits are unremarkable. The temporal bones are unremarkable. Bone windows reveal no suspicious lesions. The lung apices demonstrate no acute abnormality. The parotid glands and submandibular glands are unremarkable. The thyroid gland demonstrates no suspicious lesions. There are no laryngeal or pharyngeal masses. There are no pathologically enlarged lymph nodes. IMPRESSION: There visualized arterial vasculature overall is unremarkable with very minimal plaque seen especially for the patient's age. No significant, suspicious stenosis identified involving the visualized arterial vasculature. No significant plaque identified involving the visualized arterial vasculature. No aneurysm or dissection. PQRS Compliance Statement - Stenosis calculations for CT, MR and conventional angiography are based upon measurement of the distal ICA diameter in accordance with the NASCET methodology. Stenosis calculations for carotid ultrasound studies are derived from validated velocity criteria which are known to correlate with the NASCET methodology. *One or more of the following individualized dose reduction techniques were utilized for this examination: 1. Automated exposure control. 2. Adjustment of the mA and/or kV according to patient size. 3. Use of iterative reconstruction technique. Electronically signed by: Nigel Patel MD (09/20/2019 10:26 AM) [id number]
[2019-09-20] MEDS ORDERED: LISINOPRIL 10 MG TABLET PO ONE (11:15)
[2019-09-20 12:02] VITALS: BP 174/77
[2019-09-20] MEDS ORDERED: MECL-75 PO (12:04)
--- NOTE | 2019-09-23 13:10 | EKG ---
[facility] [address] [place] [address] Test Date: 2019-09-20 Test Time: 08:17:21 Pat Name: SEKOU DE SOUZA Department: Room: Gender: F Pet Care Assistant: : 1945 Requested By: EMMANUEL LUCERO Order Number: [id number] Reading MD: Measurements Intervals [place] Rate: 75 P: -22 AR: 162 QRS: 15 QRSD: 88 T: 63 QT: 394 QTc: 443 Interpretive Statements SINUS RHYTHM QRS(T) CONTOUR ABNORMALITY CONSISTENT WITH ANTEROSEPTAL INFARCT AGE UNDETERMINED ABNORMAL ECG RI6.02 No previous ECG available for comparison
== END 2019-09-20 12:25 | disposition home or self-care (01) ==
LOC: ER 07:59
DX: R42 Dizziness and giddiness (principal); E78.00 Pure hypercholesterolemia, unspecified; E11.9 Type 2 diabetes mellitus without complications
CPT/HCPCS: 36415; 70450; 70496; 70498; 71045; 80048; 81001; 84484; 85025; 99285; J7030; Q9967; 93005; J8597

== ENCOUNTER 2021-01-24 20:48 | Inpatient (IN) | payer BC ==
[~2021-01-24] VITALS: Ht 160 cm; Wt 57.1 kg
[~2021-01-24 20:48] MED LIST changes: +APIX5TAB PO; +ATOR40TA59 PO; +CHOL5000 PO; +DULO20CA18 PO; +EMPA10TA PO; +LOSA25TA4 PO; +MECL-75 PO; +METF-658 PO; +METO-239 PO; +TRAZ-123 PO
[2021-01-24 21:55] LABS: BASO # 0.1 x10^3/uL (0.0-0.2); BASO % 1 % (0-3); EOS # 0.1 x10^3/uL (0.0-0.7); EOS % 1 % (0-3); HEMOGLOBIN 12.6 g/dL (12.0-15.5); LYMPH # 2.9 x10^3/uL (1.0-4.8); LYMPH % 31 % (24-48); MEAN CORPUSCULAR HEMOGLOBIN 28 pg (25-35); MEAN CORPUSCULAR HGB CONC 33 g/dL (31-37); MEAN CORPUSCULAR VOLUME 84 fL (79-100); MONO # 0.5 x10^3/uL (0.0-1.1); MONO % 6 % (0-9); NEUT # 5.5 x10^3/uL (1.8-7.7); NEUT % 61 % (31-73); PLATELET COUNT 236 x10^3/uL (140-400); RED BLOOD COUNT 4.52 x10^6/uL (3.50-5.40); RED CELL DISTRIBUTION WIDTH 15.9 % (11.5-14.5); WHITE BLOOD COUNT 9.1 x10^3/uL (4.0-11.0)
[2021-01-24 21:56] LABS: BILIRUBIN,URINE SMALL (NEG); CLARITY,URINE CLEAR; COLOR,URINE YELLOW; NITRITE,URINE NEGATIVE (NEG); PROTEIN,URINE NEGATIVE (NEG-TRACE)
--- NOTE | 2021-01-24 21:58 | PHYS DOC ---
Past Medical History Past Medical History: Diabetes-Type II, High Cholesterol, Hypertension Additional Past Medical Histor: Heart murmur Past Surgical History: Hysterectomy, Knee Replacement Additional Past Surgical Histo: L shoulder surgery Smoking Status: Never Smoker Alcohol Use: None Drug Use: None General Adult EDM: Chief Complaint: WEAKNESS/GENERALIZED HPI: HPI: Patient is a 75-year-old female presenting with for weakness. This is a chronic issue and has been going on for at least the past 2 weeks. states they live at home together and he is primary caregiver. He assists with all of her activities of daily living. States patient is lost a significant amount of weight over the past year. Reports primary care physician noted something about being on a diet and he states that he thinks patient took this to heart and has not been eating. also reports that patient started becoming nonverbal approximately 2 weeks ago and has had minimal interaction with them ever since. There was no major change in health, medications, trauma or other inciting event prior to this change in behavior and condition. reports he was going to take patient in for evaluation by primary care physician but patient had an observed fall in the house where she fell backwards hitting posterior occiput on a wooden door. Patient did not fall to the ground, there is no loss of consciousness reported but patient does take Eliquis for paroxysmal atrial fibrillation. has poor overall knowledge of patient's health. States she is seen in outpatient setting by primary care physician but admits it has been a while since she has been seen. Patient is otherwise nonverbal during examination Review of Systems: Review of Systems: Patient unable to participate in ROS due to nonverbal status Heart Score: C/O Chest Pain: No HEART Score for Chest Pain: HEART Score for Chest Pain Response (Comments) Value History Moderately Suspicious 1 ECG Nonspecific Repolarizatio 1 Age > 65 2 Risk Factors >3 Risk Factors or Hx CAD 2 Total 6 Risk Factors: Risk Factors: DM, Current or recent (<one month) smoker, HTN, HLP, family history of CAD, obesity. Risk Scores: Score 0 - 3: 2.5% MACE over next 6 weeks - Discharge Home Score 4 - 6: 20.3% MACE over next 6 weeks - Admit for Clinical Observation Score 7 - 10: 72.7% MACE over next 6 weeks - Early Invasive Strategies Allergies: Allergies: Allergies Coded Allergies Type Severity Reaction Last Updated Verified No Known Drug Allergies 02/27/17 No Physical Exam: PE: Constitutional: Age-appropriate, appears thin and malnourished, no obvious distress, appears pale and frail HEENT: Head: Normocephalic and but there is palpable hematoma present to right posterior portion of occiput TMs clear, no hemotympanum Conjunctivae and EOM are normal. Pupils are equal, round, and reactive to light. Oropharynx is clear and dry No hematomas or lacerations or abrasions to face or scalp OP clear, no blood, no malocclusion, dentition intact Nares clear, no nasal septal hematoma Midface stable Neck: C-spine midline nontender, no step-offs. C-collar in place Cardiovascular: Normal rate, regular rhythm and normal heart sounds. Pulmonary/Chest: Effort normal and breath sounds normal. No respiratory distress. No wheezes. CTA bilaterally Abdominal: Soft. Bowel sounds are normal. Pt exhibits no distension. There is no tenderness. Musculoskeletal: No bony tenderness to extremities, no deformities, full passive ROM extremities Chest wall stable Pelvis stable and non-tender No vertebral TTP and spine without stepoffs Neurological: Pt is alert but nonverbal GCS 11 (E4, V1, M6) Moving all extremities willfully, able to wiggle all fingers and toes Motor and sensory function intact Downgoing toes bilaterally with stimulation Skin: Skin is warm and dry. No abrasions, no lacerations. Appears pale Psychiatric: Unable to fully assess due to patient's nonverbal status Current Patient Data: Labs: Laboratory Tests Test 01/24/21 21:27 01/24/21 22:08 White Blood Count 9.1 x10^3/uL Red Blood Count 4.52 x10^6/uL Hemoglobin 12.6 g/dL Hematocrit 38.0 % Mean Corpuscular Volume 84 fL Mean Corpuscular Hemoglobin 28 pg Mean Corpuscular Hemoglobin Concent 33 g/dL Red Cell Distribution Width 15.9 % Platelet Count 236 x10^3/uL Neutrophils (%) (Auto) 61 % Lymphocytes (%) (Auto) 31 % Monocytes (%) (Auto) 6 % Eosinophils (%) (Auto) 1 % Basophils (%) (Auto) 1 % Neutrophils # (Auto) 5.5 x10^3/uL Lymphocytes # (Auto) 2.9 x10^3/uL Monocytes # (Auto) 0.5 x10^3/uL Eosinophils # (Auto) 0.1 x10^3/uL Basophils # (Auto) 0.1 x10^3/uL Urine Collection Type U cath Urine Color Yellow Urine Clarity Clear Urine pH 5.0 Urine Specific [place] >=1.030 Urine Protein Negative mg/dL Urine Glucose (UA) >=1000 mg/dL Urine Ketones (Stick) Trace mg/dL Urine Blood Negative Urine Nitrite Negative Urine Bilirubin Small Urine Urobilinogen Dipstick 1.0 mg/dL Urine Leukocyte Esterase Negative Urine RBC 0 /HPF Urine WBC 1-4 /HPF Urine Squamous Epithelial Cells Few /LPF Urine Bacteria Few /HPF Urine Mucus Mod /LPF Sodium Level 144 mmol/L Potassium Level 3.1 mmol/L Chloride Level 106 mmol/L Carbon Dioxide Level 27 mmol/L Anion Gap 11 Blood Urea Nitrogen 12 mg/dL Creatinine 0.7 mg/dL Estimated GFR (Cockcroft-Gault) 81.6 BUN/Creatinine Ratio 17 Glucose Level 119 mg/dL Lactic Acid Level 1.5 mmol/L Calcium Level 8.5 mg/dL Magnesium Level 1.6 mg/dL Total Bilirubin 0.7 mg/dL Aspartate Amino Transf (AST/SGOT) 12 U/L Alanine Aminotransferase (ALT/SGPT) 19 U/L Alkaline Phosphatase 83 U/L Creatine Kinase 28 U/L Troponin I High Sensitivity 22 ng/L LR-Ape-U-Type Natriuretic Peptide 73101 pg/mL Total Protein 6.2 g/dL Albumin 3.2 g/dL Albumin/Globulin Ratio 1.1 Influenza Type A Antigen Negative Influenza Type B Antigen Negative SARS-CoV-2 Antigen (Rapid) Negative Vital Signs: Vital Signs Date Time Temp Pulse Resp B/P (MAP) Pulse Ox O2 Delivery O2 Flow Rate FiO2 01/24/21 21:15 97.7 80 18 133/78 (96) 97 Room Air 97.7 Vital Signs Date Time Temp Pulse Resp B/P (MAP) Pulse Ox O2 Delivery O2 Flow Rate FiO2 01/24/21 21:15 97.7 80 18 133/78 (96) 97 Room Air 97.7 EKG: EKG: EKG ordered and interpreted by myself at 2128 as sinus rhythm at 73 bpm, QRS 156 and QTC 500 otherwise unremarkable intervals, left axis deviation, left bundle branch block present but negative Sgarbossa's criteria, no STEMI Radiology/Procedures: Radiology/Procedures: Exam: Chest one view INDICATION: Altered mental status TECHNIQUE: Frontal view of the chest Comparisons: 10/20/2020 FINDINGS: Heart is mildly enlarged. Pulmonary vessels are within normal limits. Patchy bilateral perihilar airspace disease. No pleural effusion. IMPRESSION: Patchy perihilar airspace disease favored to be infectious or inflammatory in etiology. Electronically signed by: Med Gresham MD (01/24/2021 10:41 PM) [facility] ///////////// Exam: CT head and cervical spine without contrast INDICATION: Fall posterior TECHNIQUE: Sequential axial images through the head and cervical spine were obtained without the administration of IV contrast. Exposure: One or more of the following in the visualized dose reduction techniques were utilized for this examination: 1. Automated exposure control 2. Adjustment of the MA and/or KV according to patient size 3. Use of iterative of reconstructive technique Comparisons: None FINDINGS: Head: No focal parenchymal lesion or hemorrhage is identified. There is no midline s hift or sulcal effacement. No acute vascular territory infarction is identified. Guzman-white distinction is preserved. The ventricular system is within normal limits without compression hydrocephalus. The basal cisterns are well maintained. Mild extra cranial soft tissue scalp contusion overlying the right occipital region. The visualized portions of the paranasal sinuses and mastoid air cells are well-pneumatized. No acute fractures. Cervical spine: Vertebral body heights and alignment are well-maintained. Fracture to the cervical spine is not identified. No significant spondylotic change in cervical spine. Visualized paraspinal soft tissues are unremarkable. IMPRESSION: 1. Mild extra cranial soft tissue scalp contusion overlying the right occipital region without underlying osseous or intracranial abnormality. 2. Negative CT C-spine for acute traumatic injury. Electronically signed by: Med Gresham MD (01/24/2021 10:33 PM) [facility] Course & Med Decision Making: Course & Med Decision Making ABCs unremarkable HPI physical exam and comprehensive ER work-up nonconcerning for any emergent or surgical issues Patient later verbal during examination. Her affect is flat and she is totally withdrawn throughout entirety of my visits and repeat assessments. at bedside fearful of return home given his inability to fully care for patient given level of care she is currently requiring Patient unable to safely ambulate and care for self at home. Does not have regular care outside of at home to assist through personal deficits. As such, I contacted hospitalist and discussed need for hospitalization for failure to thrive in an individual who is unsafe for disposition home. No obvious medical causes of patient's condition, potential depression? Further assessment required Patient accepted under the care of hospitalist. I updated patient and at bedside on plan of care that included hospital admission and they were amenable. All questions and concerns addressed prior to hospital admission Jason Disclaimer: Jason Disclaimer: This electronic medical record was generated, in whole or in part, using a voice recognition dictation system. Departure Departure Impression: Primary Impression: Failure to thrive Additional Impressions: Fall Unable to care for self Disposition: ADMITTED INPATIENT Admitting Physician: KAMILAH (DR PANDA) Condition: STABLE Referrals: CHANG VALDIVIA MD (PCP) LEE WELLS DO Jan 24, 2021 21:58
[2021-01-24 22:01] LABS: BACTERIA,URINE FEW /HPF (0-FEW); RBC,URINE 0 /HPF (0-2)
[2021-01-24 22:11] LABS: CALCIUM 8.5 mg/dL (8.5-10.1); CREATININE 0.7 mg/dL (0.6-1.0); GFR 81.6; POTASSIUM 3.1 mmol/L (3.5-5.1)
[2021-01-24 22:16] LABS: ALBUMIN 3.2 g/dL (3.4-5.0); ALBUMIN/GLOBULIN RATIO 1.1 (1.0-1.7); MAGNESIUM 1.6 mg/dL (1.8-2.4); TOTAL BILIRUBIN 0.7 mg/dL (0.2-1.0); TOTAL PROTEIN 6.2 g/dL (6.4-8.2)
--- NOTE | 2021-01-24 22:35 | RAD ---
Exam: CT head and cervical spine without contrast INDICATION: Fall posterior TECHNIQUE: Sequential axial images through the head and cervical spine were obtained without the admi nistration of IV contrast. Exposure: One or more of the following in the visualized dose reduction techniques were utilized for this examination: 1. Automated exposure control 2. Adjustment of the MA and/or KV according to patient size 3. Use of iterative of reconstructive technique Comparisons: None FINDINGS: Head: No focal parenchymal lesion or hemorrhage is identified. There is no midline shift or sulcal effaceme nt. No acute vascular territory infarction is identified. Guzman-white distinction is preserved. The ventricular system is within normal limits without compression hydrocephalus. The basal cisterns are well maintained. Mild extra cranial soft tissue scalp contusion overlying the right occipital region. The visualized p ortions of the paranasal sinuses and mastoid air cells are well-pneumatized. No acute fractures. Cervical spine: Vertebral body heights and alignment are well-maintained. Fracture to the cervical spine is not identified. No significant spondylotic change in cervical spine. Visualized paraspinal soft tissues are unremarkable. IMPRESSION: 1. Mild extra cranial soft tissue scalp contusion overlying the right occipital region without under lying osseous or intracranial abnormality. 2. Negative CT C-spine for acute traumatic injury. Electronically signed by: Med Gresham MD (01/24/2021 10:33 PM) [facility]
--- NOTE | 2021-01-24 22:43 | RAD ---
Exam: Chest one view INDICATION: Altered mental status TECHNIQUE: Frontal view of the chest Comparisons: 10/20/2020 FINDINGS: Heart is mildly enlarged. Pulmonary vessels are within normal limits. Patchy bilateral perihilar airspace disease. No pleural effusion. IMPRESSION: Patchy perihilar airspace disease favored to be infectious or inflammatory in etiology. Electronically signed by: Med Gresham MD (01/24/2021 10:41 PM) TONEY
[2021-01-24 22:44] LABS: INFLUENZA A PATIENT NEGATIVE (NEGATIVE); INFLUENZA B PATIENT NEGATIVE (NEGATIVE)
--- NOTE | 2021-01-24 23:20 | EKG ---
[facility] [address] [place] [address] Test Date: 2021-01-24 Test Time: 21:16:32 Pat Name: SEKOU DE SOUZA Department: Room: Gender: F Architectural Associate: : 1945 Requested By: LEE WELLS Order Number: [id number] Reading MD: Jose Gutierrez MD Measurements Intervals [place] Rate: 73 P: 56 NH: 162 QRS: -21 QRSD: 156 T: 102 QT: 450 QTc: 500 Interpretive Statements SINUS RHYTHM LEFTWARD AXIS LOW LIMB LEAD VOLTAGE LEFT BUNDLE BRANCH BLOCK ABNORMAL ECG Electronically Signed On 01-25-2021 9:02:08 [employer] by Jose Gutierrez MD
[2021-01-24] MEDS ORDERED: ACETAMINOPHEN 325 MG TABLET. PO PRN (23:45)
[2021-01-24] MEDS ORDERED: POTASSIUM CL 40MEQ IN 0.9%NACL 1,000 ML IV SCH (23:45)
[2021-01-24] MEDS ORDERED: NITROGLYCERIN SUBLINGUAL 0.4 MG BOTTLE OF 25. SL PRN (23:45)
[2021-01-25] MEDS ORDERED: MAGNESIUM SULFATE 2GM 50 ML IV ONE (01:00)
[2021-01-25 03:00] VITALS: BP 138/84
[2021-01-25] MEDS ORDERED: VITA400T6 PO (05:17)
[2021-01-25] MEDS ORDERED: METO-239 PO (05:17)
[2021-01-25 07:00] VITALS: BP 135/78
[2021-01-25] MEDS ORDERED: FLU VACC QUAD 21-22 (6MOS+) PF 0.5 ML SYRINGE. VAX IM ONE (09:00)
[2021-01-25] MEDS: cefTRIAXone IV Push 1 GM VIAL. IVP SCH (09:00)
--- NOTE | 2021-01-25 09:10 | HP ---
DATE OF SERVICE: 01/25/2021 ADMIT DATE: 01/24/2021 CHIEF COMPLAINT: Weakness. HISTORY OF PRESENT ILLNESS: The patient is a pleasantly confused 75-year-old female who lives at home with her . I suspect she might possibly have some underlying Alzheimer's. She has been slowly failing to thrive. She has got a lot weaker over the past 14 days. She is not eating as well. She has lost some weight. She is not assisting with her daily activities now. She apparently did fell at home as well. I discussed the case with ER physician. We are going to admit the patient and consult social work lecturer for possible long-term care. We will also consult Neurology. PAST MEDICAL HISTORY: Possible undiagnosed Alzheimer's?, diabetes, hypertension, hyperlipidemia, cardiac murmur, hysterectomy, knee surgery, left shoulder surgery. ALLERGIES: None. FAMILY HISTORY: Diabetes. SOCIAL HISTORY: She is retired. Does not drink, smoke or take drugs. She is and lives at home with her . MEDICATIONS: Reviewed. Please refer to the MRAD. REVIEW OF SYSTEMS: Unable to obtain. She is too confused. PHYSICAL EXAMINATION: VITALS: Within normal limits and are stable. GENERAL: She is very confused, but alert and trying to talk. HEENT: Normal cephalic atraumatic, external auditory canals are patent. Eyes: Extraocular muscles are intact, pupils are equally round and reactive to light and accommodation. MUSCULOSKELETAL: Well developed, well nourished, good range of motion. ENDOCRINE: No thyromegaly was palpated. LYMPHATICS: No cervical chain or axillary nodes were noted. HEMATOPOIETIC: No bruising. NECK: Supple, no JVD, no thyromegaly was noted. LUNGS: Clear to auscultation in all lung shane without rhonchi or wheezing. HEART: RRR, S1, S2 present. Peripheral pulses intact, no obvious murmurs were noted. ABDOMEN: Soft, nontender. Positive bowel sounds, no organomegaly, normal bowel sounds. EXTREMITIES: Without any cyanosis, clubbing or edema. Pedal pulses intact, Homans sign is negative. NEUROLOGIC: She is very confused, but alert and trying to talk. PSYCHIATRIC: She is very confused, but alert and trying to talk. SKIN: No ulcerations or rashes, good skin turgor, no jaundice. VASCULAR: Good capillary refill, neurovascular bundle appears to be intact. LABORATORY DATA: Electrolytes are normal except for potassium of 3.1. Hematology normal. Urinalysis negative. COVID testing negative. Chest x-ray: Patchy perihilar airspace disease favored to be infection or inflammatory. CT of the head and cervical spine shows some mild extracranial soft tissue scalp contusion without osseous abnormalities. Negative CT of the C-spine. ASSESSMENT AND PLAN: Mental status change, incidental finding of abnormal chest x-ray, hypokalemia, possible failure to thrive, possible early Alzheimer's. The patient will be admitted. We will consult Neurology and social work lecturer. Empiric IV antibiotics, home meds. DVT prophylaxis, empiric IV fluids, encouraged p.o. intake. Suspect she might need long-term care. BRAD DR: Alicia TID: [id number]
[2021-01-25] MEDS ORDERED: ALBUTEROL SULFATE 2.5 MG/3 ML NEBU. NEB PRN (10:45)
--- NOTE | 2021-01-25 10:58 | NUR ---
SW following. Discussed with RN, pt from home with , room air, cardiac diet. PT/OT ordered. Flu negative, Rapid COVID-19 negative. New admission, awaiting further plan of care. SW will continue to follow.
[2021-01-25 11:17] VITALS: BP 135/86
--- NOTE | 2021-01-25 11:38 | PDOC2 ---
NEUROLOGY CONSULT Date of Service DOS: DATE: 01/25/21 TIME: 11:31 Reason for Consult Reason for Consult: Altered mental status Referring Physician Referring Physician: Dr. Camara Source Source: Caregiver (), Chart review, Patient History of Present Illness History of Present Illness The patient is a 75-year-old right-handed female whom I last saw during her October hospital stay for new atrial fibrillation, dizziness, and mental status change. At that time I elicited a history of mental decline over the past couple years. She repeats questions and forgets to pay her bills. She had a negative head CT and laboratory studies for common reversible causes of dementia were negative. The plan was for her to return to my office in 4-6 weeks. I did not see her again. The patient's says that the patient has stopped eating over the past couple weeks. She is not assisting with daily activities. She has had weight loss. She has had falls and trouble walking. He denies any problems with violent behavior, hallucinations, delusions, or incontinence. There is no history of stroke, seizure, or head injury. Past Medical History Cardiovascular: AFIB, HTN, Hyperlipidemia CENTRAL NERVOUS SYSTEM: Dementia Endocrine: Diabetes Past Surgical History Past Surgical History: Total knee replacement, Hysterectomy, Other (Left shoulder) Family History Family History: CAD Social History Social History , no tobacco or alcohol Current Medications Current Medications Current Medications Potassium Chloride/Sodium Chloride 1,000 ml @ 100 mls/hr Q10H IV Last administered on 01/24/21at 23:32; Start 01/24/21 at 23:45; Stop 01/25/21 at 09:44; Status DC Acetaminophen (Tylenol) 650 mg PRN Q4HRS PRN PO FEVER > 100.3'F; Start 01/24/21 at 23:45; Stop 01/25/21 at 23:44 Nitroglycerin (Nitrostat) 0.4 mg PRN Q5MIN PRN SL CHEST PAIN; Start 01/24/21 at 23:45; Stop 01/25/21 at 23:44 Magnesium Sulfate 50 ml @ 25 mls/hr 1X ONCE IV Last administered on 01/25/21at 01:00; Start 01/25/21 at 01:00; Stop 01/25/21 at 02:59; Status DC Influenza Virus Vaccine Quadrival (Flulaval Quad Syringe) 0.5 ml ONCE ONCE VAX IM ; Start 01/25/21 at 09:00; Stop 01/25/21 at 09:01; Status DC Ceftriaxone Sodium (Rocephin) 1 gm Q24H IVP Last administered on 01/25/21at 09:00; Start 01/25/21 at 09:00 Sodium Chloride 1,000 ml @ 75 mls/hr [id number] IV ; Start 01/25/21 at 09:00 Albuterol Sulfate (Ventolin Neb Soln) 2.5 mg PRN Q4HRS PRN NEB SHORTNESS OF BREATH; Start 01/25/21 at 10:45 Active Scripts Active Jardiance (Empagliflozin) 10 Mg Tablet 10 Mg PO DAILY 30 Days Eliquis (Apixaban) 5 Mg Tablet 5 Mg PO BID 30 Days Reported Vitamin E (Vitamin E Mixed) 400 Unit Tablet 1 Tab PO QHS 30 Days Metoprolol Succinate ( Xl ) (Metoprolol Succinate) 25 Mg Tab.er.24h 1 Tab PO TID Vitamin D3 (Vitamin D) 125 Mcg Capsule 5,000 Mcg PO HS 5,000 UNITS = 125 MCG Duloxetine Hcl 20 Mg Capsule. 20 Mg PO HS Metformin Hcl Er (Metformin Hcl) 500 Mg Tab.er.24h 2 Tab PO BIDBFRMEAL Atorvastatin Calcium 40 Mg Tablet 40 Mg PO HS Losartan Potassium 25 Mg Tablet 25 Mg PO HS Trazodone Hcl 100 Mg Tablet 100 Mg PO QHS Fish Oil 1,400 Mg Softgel ([place]-3/Dha/Epa/Fish Oil) 1 Each Capsule.dr 1 Each PO HS Allergies Allergies: Coded Allergies: No Known Drug Allergies (Unverified , 02/27/17) ROS Review of System Negative for fever, chills, weight loss, shortness of breath, chest pain, indigestion, hematochezia, melena, and dysuria. Full 14-point review of systems is negative. Physical Exam Physical Examination General: Well-developed, well-nourished, white female, in no acute distress HEENT: Normocephalic andatraumatic. Temporal arteriespulsatile and nontender. Neck: Supple without bruit, no meningismus Musculoskeletal: Stability:see neurologic. Gait exam:see neurologic. Tone:see neurologic.Strength:see neurologic. Neurological: Mental Status:orientation, memory, attention span/concentration, language, fund of knowledge: Does not know date, location, name of president, names and repeats well, speech is fluent, follows commands. Cranial Nerves:Pupils equal and reactive to light, extraocular movements areintact, visual shane are full to confrontation. Facial sensation is normal. There is no facial asymmetry. Vestibulo-ocular reflex is intact. Palate elevates and tongue protrudes in midline. All other cranial related problems are negative except as mentioned before.Reflexes:0-1+ and symmetric with flexor plantar responses. Bilateral grasp reflexes. Motor:4/5 strength with normal tone and bulk. Coordination:Finger-nose finger and cucp-ia-dsri testing are normal. Rapid alternating movements and fine finger movements are intact. Gait:Not tested. Sensory:Stocking loss. Vitals VITALS Vital Signs Date Time Temp Pulse Resp B/P (MAP) Pulse Ox O2 Delivery O2 Flow Rate FiO2 01/25/21 07:00 97.8 79 18 135/78 (97) 97 Room Air 97.8 Labs Labs Laboratory Tests Test 01/24/21 21:27 01/24/21 22:08 White Blood Count 9.1 x10^3/uL (4.0-11.0) Red Blood Count 4.52 x10^6/uL (3.50-5.40) Hemoglobin 12.6 g/dL (12.0-15.5) Hematocrit 38.0 % (36.0-47.0) Mean Corpuscular Volume 84 fL (79-100) Mean Corpuscular Hemoglobin 28 pg (25-35) Mean Corpuscular Hemoglobin Concent 33 g/dL (31-37) Red Cell Distribution Width 15.9 % (11.5-14.5) Platelet Count 236 x10^3/uL (140-400) Neutrophils (%) (Auto) 61 % (31-73) Lymphocytes (%) (Auto) 31 % (24-48) Monocytes (%) (Auto) 6 % (0-9) Eosinophils (%) (Auto) 1 % (0-3) Basophils (%) (Auto) 1 % (0-3) Neutrophils # (Auto) 5.5 x10^3/uL (1.8-7.7) Lymphocytes # (Auto) 2.9 x10^3/uL (1.0-4.8) Monocytes # (Auto) 0.5 x10^3/uL (0.0-1.1) Eosinophils # (Auto) 0.1 x10^3/uL (0.0-0.7) Basophils # (Auto) 0.1 x10^3/uL (0.0-0.2) Urine Collection Type U cath Urine Color Yellow Urine Clarity Clear Urine pH 5.0 (<5.0-8.0) Urine Specific [place] >=1.030 (1.000-1.030) Urine Protein Negative mg/dL (NEG-TRACE) Urine Glucose (UA) >=1000 mg/dL (NEG) Urine Ketones (Stick) Trace mg/dL (NEG) Urine Blood Negative (NEG) Urine Nitrite Negative (NEG) Urine Bilirubin Small (NEG) Urine Urobilinogen Dipstick 1.0 mg/dL (0.2 mg/dL) Urine Leukocyte Esterase Negative (NEG) Urine RBC 0 /HPF (0-2) Urine WBC 1-4 /HPF (0-4) Urine Squamous Epithelial Cells Few /LPF Urine Bacteria Few /HPF (0-FEW) Urine Mucus Mod /LPF Sodium Level 144 mmol/L (136-145) Potassium Level 3.1 mmol/L (3.5-5.1) Chloride Level 106 mmol/L (98-107) Carbon Dioxide Level 27 mmol/L (21-32) Anion Gap 11 (6-14) Blood Urea Nitrogen 12 mg/dL (7-20) Creatinine 0.7 mg/dL (0.6-1.0) Estimated GFR (Cockcroft-Gault) 81.6 BUN/Creatinine Ratio 17 (6-20) Glucose Level 119 mg/dL (70-99) Lactic Acid Level 1.5 mmol/L (0.4-2.0) Calcium Level 8.5 mg/dL (8.5-10.1) Magnesium Level 1.6 mg/dL (1.8-2.4) Total Bilirubin 0.7 mg/dL (0.2-1.0) Aspartate Amino Transf (AST/SGOT) 12 U/L (15-37) Alanine Aminotransferase (ALT/SGPT) 19 U/L (14-59) Alkaline Phosphatase 83 U/L (46-116) Creatine Kinase 28 U/L (26-192) Troponin I High Sensitivity 22 ng/L (4-50) QB-Fcs-A-Type Natriuretic Peptide 31545 pg/mL (0-449) Total Protein 6.2 g/dL (6.4-8.2) Albumin 3.2 g/dL (3.4-5.0) Albumin/Globulin Ratio 1.1 (1.0-1.7) Influenza Type A Antigen Negative (NEGATIVE) Influenza Type B Antigen Negative (NEGATIVE) SARS-CoV-2 Antigen (Rapid) Negative (NEGATIVE) Laboratory Tests Test 01/24/21 21:27 01/24/21 22:08 White Blood Count 9.1 x10^3/uL (4.0-11.0) Red Blood Count 4.52 x10^6/uL (3.50-5.40) Hemoglobin 12.6 g/dL (12.0-15.5) Hematocrit 38.0 % (36.0-47.0) Mean Corpuscular Volume 84 fL (79-100) Mean Corpuscular Hemoglobin 28 pg (25-35) Mean Corpuscular Hemoglobin Concent 33 g/dL (31-37) Red Cell Distribution Width 15.9 % (11.5-14.5) Platelet Count 236 x10^3/uL (140-400) Neutrophils (%) (Auto) 61 % (31-73) Lymphocytes (%) (Auto) 31 % (24-48) Monocytes (%) (Auto) 6 % (0-9) Eosinophils (%) (Auto) 1 % (0-3) Basophils (%) (Auto) 1 % (0-3) Neutrophils # (Auto) 5.5 x10^3/uL (1.8-7.7) Lymphocytes # (Auto) 2.9 x10^3/uL (1.0-4.8) Monocytes # (Auto) 0.5 x10^3/uL (0.0-1.1) Eosinophils # (Auto) 0.1 x10^3/uL (0.0-0.7) Basophils # (Auto) 0.1 x10^3/uL (0.0-0.2) Urine Collection Type U cath Urine Color Yellow Urine Clarity Clear Urine pH 5.0 (<5.0-8.0) Urine Specific [place] >=1.030 (1.000-1.030) Urine Protein Negative mg/dL (NEG-TRACE) Urine Glucose (UA) >=1000 mg/dL (NEG) Urine Ketones (Stick) Trace mg/dL (NEG) Urine Blood Negative (NEG) Urine Nitrite Negative (NEG) Urine Bilirubin Small (NEG) Urine Urobilinogen Dipstick 1.0 mg/dL (0.2 mg/dL) Urine Leukocyte Esterase Negative (NEG) Urine RBC 0 /HPF (0-2) Urine WBC 1-4 /HPF (0-4) Urine Squamous Epithelial Cells Few /LPF Urine Bacteria Few /HPF (0-FEW) Urine Mucus Mod /LPF Sodium Level 144 mmol/L (136-145) Potassium Level 3.1 mmol/L (3.5-5.1) Chloride Level 106 mmol/L (98-107) Carbon Dioxide Level 27 mmol/L (21-32) Anion Gap 11 (6-14) Blood Urea Nitrogen 12 mg/dL (7-20) Creatinine 0.7 mg/dL (0.6-1.0) Estimated GFR (Cockcroft-Gault) 81.6 BUN/Creatinine Ratio 17 (6-20) Glucose Level 119 mg/dL (70-99) Lactic Acid Level 1.5 mmol/L (0.4-2.0) Calcium Level 8.5 mg/dL (8.5-10.1) Magnesium Level 1.6 mg/dL (1.8-2.4) Total Bilirubin 0.7 mg/dL (0.2-1.0) Aspartate Amino Transf (AST/SGOT) 12 U/L (15-37) Alanine Aminotransferase (ALT/SGPT) 19 U/L (14-59) Alkaline Phosphatase 83 U/L (46-116) Creatine Kinase 28 U/L (26-192) Troponin I High Sensitivity 22 ng/L (4-50) HB-Ubl-T-Type Natriuretic Peptide 50755 pg/mL (0-449) Total Protein 6.2 g/dL (6.4-8.2) Albumin 3.2 g/dL (3.4-5.0) Albumin/Globulin Ratio 1.1 (1.0-1.7) Influenza Type A Antigen Negative (NEGATIVE) Influenza Type B Antigen Negative (NEGATIVE) SARS-CoV-2 Antigen (Rapid) Negative (NEGATIVE) Images Images CT head and cervical spine without contrast INDICATION: Fall posterior TECHNIQUE: Sequential axial images through the head and cervical spine were obtained without the administration of IV contrast. Exposure: One or more of the following in the visualized dose reduction techniques were utilized for this examination: 1. Automated exposure control 2. Adjustment of the MA and/or KV according to patient size 3. Use of iterative of reconstructive technique Comparisons: None FINDINGS: Head: No focal parenchymal lesion or hemorrhage is identified. There is no midline shift or sulcal effacement. No acute vascular territory infarction is identified. Guzman-white distinction is preserved. The ventricular system is within normal limits without compression hydrocephalus. The basal cisterns are well maintained. Mild extra cranial soft tissue scalp contusion overlying the right occipital region. The visualized portions of the paranasal sinuses and mastoid air cells are well-pneumatized. No acute fractures. Cervical spine: Vertebral body heights and alignment are well-maintained. Fracture to the cervical spine is not identified. No significant spondylotic change in cervical spine. Visualized paraspinal soft tissues are unremarkable. IMPRESSION: 1. Mild extra cranial soft tissue scalp contusion overlying the right occipital region without underlying osseous or intracranial abnormality. 2. Negative CT C-spine for acute traumatic injury. Assessment/Plan Assessment/Plan Impression: Alzheimer's dementia, worked up just 3 months ago during the hospital stay. Plan was for the patient to return to my office for consideration of donepezil. Abnormal chest x-ray Failure to thrive, poor appetite, falls Recommendations: Trial of donepezil, side effects discussed agrees to DO NOT RESUSCITATE order Social work to help with power of appeals nurse paperwork Rehabilitation modalities She may need group home placement. Fully discussed with patient's . Thank you for letting me help with the patient's care JAKE ADAN MD Jan 25, 2021 11:38
[2021-01-25] MEDS: DONEPEZIL HCL 5 MG TABLET. PO SCH (12:25)
[2021-01-25] MEDS: IV NORMAL SALINE 1000ML BAG 1,000 ML IV SCH (12:26)
[2021-01-25 15:00] VITALS: BP 152/95
[2021-01-25 19:00] VITALS: BP 136/79
[2021-01-25] MEDS ORDERED: traZODone 100 MG TABLET. PO SCH (21:00)
[2021-01-25 23:00] VITALS: BP 136/76
[2021-01-26 03:00] VITALS: BP 129/71
[2021-01-26] MEDS: IV NORMAL SALINE 1000ML BAG 1,000 ML IV SCH ×2 (04:11→11:40)
[2021-01-26 07:00] VITALS: BP 138/75
[2021-01-26 07:58] LABS: BASO % 1 % (0-3); EOS # 0.1 x10^3/uL (0.0-0.7); EOS % 1 % (0-3); HEMATOCRIT 36.8 % (36.0-47.0); LYMPH # 3.3 x10^3/uL (1.0-4.8); LYMPH % 39 % (24-48); MEAN CORPUSCULAR HEMOGLOBIN 27 pg (25-35); MEAN CORPUSCULAR HGB CONC 33 g/dL (31-37); MEAN CORPUSCULAR VOLUME 84 fL (79-100); MONO # 0.6 x10^3/uL (0.0-1.1); MONO % 7 % (0-9); NEUT # 4.3 x10^3/uL (1.8-7.7); NEUT % 52 % (31-73); PLATELET COUNT 225 x10^3/uL (140-400); RED BLOOD COUNT 4.36 x10^6/uL (3.50-5.40); RED CELL DISTRIBUTION WIDTH 15.6 % (11.5-14.5); WHITE BLOOD COUNT 8.3 x10^3/uL (4.0-11.0)
[2021-01-26 08:10] LABS: CALCIUM 8.1 mg/dL (8.5-10.1); CREATININE 0.6 mg/dL (0.6-1.0); GFR 97.5; POTASSIUM 3.6 mmol/L (3.5-5.1)
[2021-01-26] MEDS: DONEPEZIL HCL 5 MG TABLET. PO SCH (08:43)
[2021-01-26 08:48] LABS: PLT ESTIMATE ADEQUATE (ADEQUATE)
[2021-01-26] MEDS: cefTRIAXone IV Push 1 GM VIAL. IVP SCH (09:00)
--- NOTE | 2021-01-26 10:56 | PDOC ---
[facility] PROGRESS NOTE Date of Service DOS: DATE: 01/26/21 TIME: 10:54 Chief Complaint Chief Complaint Progression of Alzheimer's dementia Abnormal chest x-ray with possible pneumonia resolving diabetes, hypertension, hyperlipidemia, cardiac murmur, hysterectomy, knee surgery, left shoulder surgery. History of Present Illness History of Present Illness 01/26/2021 Patient seen and examined She is sitting up in bed more talkative Pleasantly confused Eating lunch Her is present he wants to get her home Neurology put her on some Aricept and we certainly agree We will go ahead and discharge this afternoon Vitals/I&O Vitals/I&O: Vital Signs Date Time Temp Pulse Resp B/P (MAP) Pulse Ox O2 Delivery O2 Flow Rate FiO2 01/26/21 08:30 Room Air 01/26/21 07:00 98.1 89 16 138/75 (96) 94 98.1 I & O 01/25/21 01/25/21 01/26/21 15:00 23:00 07:00 Intake Total 220 ml 120 ml 1000 ml Balance 220 ml 120 ml 1000 ml Physical Exam General: Other (Pleasantly confused) Heart: Regular rate Lungs: Clear Abdomen: Normal bowel sounds Extremities: No clubbing Skin: No rashes Labs Labs: Laboratory Tests Test 01/26/21 06:55 White Blood Count 8.3 x10^3/uL (4.0-11.0) Red Blood Count 4.36 x10^6/uL (3.50-5.40) Hemoglobin 12.0 g/dL (12.0-15.5) Hematocrit 36.8 % (36.0-47.0) Mean Corpuscular Volume 84 fL (79-100) Mean Corpuscular Hemoglobin 27 pg (25-35) Mean Corpuscular Hemoglobin Concent 33 g/dL (31-37) Red Cell Distribution Width 15.6 % (11.5-14.5) Platelet Count 225 x10^3/uL (140-400) Neutrophils (%) (Auto) 52 % (31-73) Lymphocytes (%) (Auto) 39 % (24-48) Monocytes (%) (Auto) 7 % (0-9) Eosinophils (%) (Auto) 1 % (0-3) Basophils (%) (Auto) 1 % (0-3) Neutrophils # (Auto) 4.3 x10^3/uL (1.8-7.7) Lymphocytes # (Auto) 3.3 x10^3/uL (1.0-4.8) Monocytes # (Auto) 0.6 x10^3/uL (0.0-1.1) Eosinophils # (Auto) 0.1 x10^3/uL (0.0-0.7) Basophils # (Auto) 0.0 x10^3/uL (0.0-0.2) Platelet Estimate Adequate (ADEQUATE) Large Platelets Present Sodium Level 145 mmol/L (136-145) Potassium Level 3.6 mmol/L (3.5-5.1) Chloride Level 111 mmol/L (98-107) Carbon Dioxide Level 22 mmol/L (21-32) Anion Gap 12 (6-14) Blood Urea Nitrogen 9 mg/dL (7-20) Creatinine 0.6 mg/dL (0.6-1.0) Estimated GFR (Cockcroft-Gault) 97.5 Glucose Level 83 mg/dL (70-99) Calcium Level 8.1 mg/dL (8.5-10.1) Assessment and Plan Assessmemt and Plan Problems Medical Problems: (1) Aphasia Status: Acute (2) Failure to thrive Status: Acute (3) Fall Status: Acute (4) Unable to care for self Status: Acute Progression of Alzheimer's dementia Abnormal chest x-ray with possible pneumonia resolving diabetes, hypertension, hyperlipidemia, cardiac murmur, hysterectomy, knee surgery, left shoulder surgery. Plan Discharge see dictation Comment Review of Relevant I have reviewed the following items kirsten (where applicable) has been applied. Medications: Current Medications Medications (Trade) Dose Ordered Sig/Javed Route PRN Reason Start Time Stop Time Status Last Admin Dose Admin Donepezil HCl (Aricept) 5 mg DAILY PO 01/25/21 12:00 01/26/21 08:43 Trazodone HCl (Desyrel) 100 mg QHS PO 01/25/21 21:00 01/25/21 22:09 Justifications for Admission Other Justification JUANA GARRETT III DO Jan 26, 2021 10:56
[2021-01-26] MEDS ORDERED: DONE5TAB56 PO (10:58)
[2021-01-26] MEDS ORDERED: DOXY100C3 PO (10:58)
--- NOTE | 2021-01-26 11:01 | SNU/HH DC ---
DISCHARGE WITH HOME HEALTH DISCHARGE INFORMATION: Final Diagnosis: Problems Medical Problems: (1) Aphasia Status: Acute (2) Failure to thrive Status: Acute (3) Fall Status: Acute (4) Unable to care for self Status: Acute Condition on Discharge: Stable HOME HEALTH: Face to Face: I certify this patient is under my care and that I, or a nurse practitioner or physician's claims assistant working with me, had a face to face encounter that meets the physician face to face encounter requirements with this patient on []. Medical Complications: Other (New diagnosis of Alzheimer's) Long-Term For: Assess & Educate Safety RN For Eval/Treatment: Yes Physical Therapy For: Evalulation/Treatment Occupational Therapy For: Evaluation/Treatment Home Health Aide For: Self-care BOTTOMING ROOM SUPERVISOR For: Community Resources Pt Meets Homebound Status: Poor coordination w/ amb. POST DISCHARGE ORDERS: Activity Instructions for Disc: Activity as tolerated Weight Bearing Status after Di: No restrictions Bathing Instructions: No Tub Bath until see DIET AFTER DISCHARGE: Cardiac Wound/Incision Care: May get incision wet, Other, see below CHECKS AFTER DISCHARGE: Checks after discharge: Check blood press - daily, Check blood sugar, ac/hs TREATMENT/EQUIPMENT ORDERS: Adaptive Equipment Issued: Walker CERTIFICATION STATEMENT: Certification Statement: Certification Statement: Based on the above finding, I certify that this patient is confined to the home and needs intermittent longterm care, physical therapy and/or speech therapy, or continues to need occupational therapy.~ This patient is under my care, and I have initiated the establishment of the plan of care.~ This patient will be followed by myself or a community physician who will periodically review the plan of care. Home Meds Active Scripts Empagliflozin (Jardiance) 10 Mg Tablet, 10 MG PO DAILY for DM2 for 30 Days, #30 TAB 2 Refills Prov:JO-ANN ABDUL MD 10/23/20 Apixaban (ELIQUIS) 5 Mg Tablet, 5 MG PO BID for Atrial fibrillation for 30 Days, #60 TAB 2 Refills Prov:JO-ANN ABDUL MD 10/23/20 Reported Medications Vitamin E Mixed (VITAMIN E) 400 Unit Tablet, 1 TAB PO QHS for supplement for 30 Days, #30 TAB 0 Refills 01/25/21 Metoprolol Succinate (METOPROLOL SUCCINATE ( XL )) 25 Mg Tab.er.24h, 1 TAB PO TID for CHF, #30 TAB 5 Refills 01/25/21 Cholecalciferol (Vitamin D3) (Vitamin D3 ) 125 Mcg Capsule, 5000 MCG PO HS for SUPPLEMENT, CAP 5,000 UNITS = 125 MCG 10/20/20 Duloxetine Hcl (DULOXETINE HCL) 20 Mg Capsule.dr, 20 MG PO HS for depression 10/20/20 Metformin Hcl (METFORMIN HCL ER) 500 Mg Tab.er.24h, 2 TAB PO BIDBFRMEAL for DM 10/20/20 Atorvastatin Calcium (ATORVASTATIN CALCIUM) 40 Mg Tablet, 40 MG PO HS for cholesterol 10/20/20 Losartan Potassium (Losartan Potassium) 25 Mg Tablet, 25 MG PO HS for blood pressure 10/20/20 Trazodone Hcl (TRAZODONE HCL) 100 Mg Tablet, 100 MG PO QHS for insomnia 10/20/20 [place]-3/Dha/Epa/Fish Oil (FISH OIL 1,400 MG SOFTGEL) 1 Each Capsule.dr, 1 EACH PO HS, CAP 07/27/16 JUANA GARRETT III DO Jan 26, 2021 11:01
[2021-01-26 11:06] VITALS: BP 140/80
--- NOTE | 2021-01-26 11:10 | PDOC ---
PROGRESS NOTES Date of Service DATE: 01/26/21 TIME: 11:08 Assessment Problems Medical Problems: (1) Aphasia Status: Acute (2) Failure to thrive Status: Acute (3) Fall Status: Acute (4) Unable to care for self Status: Acute Alzheimer's dementia, worked up just 3 months ago during the hospital stay. Plan was for the patient to return to my office for consideration of donepezil. Abnormal chest x-ray Failure to thrive, poor appetite, falls Plan Donepezil agreed to DO NOT RESUSCITATE order Social work to help with power of transactional attorney paperwork Rehabilitation modalities She may need intermediate placement. Follow-up with me in 6 weeks Fully discussed with patient's . Subjective No complaints, still not eating well Objective Vital Signs Date Time Temp Pulse Resp B/P (MAP) Pulse Ox O2 Delivery O2 Flow Rate FiO2 01/26/21 11:06 98.1 90 18 140/80 (100) 95 Room Air 98.1 Intake and Output 01/26/21 07:00 Intake Total 1340 ml Balance 1340 ml Intake Oral 340 ml IV Total 1000 ml # Voids 1 PHYSICAL EXAM Alert. Knows that she is in the hospital, does not know the date PERRL. EOMI. CN: no focal findings. Muscle tone: normal. Muscle strength: 4/5 DTR: 0-1+ Plantar reflex: Flexor Bilateral grasp reflexes Gait: not examined in bed. Sensory exam: Stocking loss. No cerebellar signs elicited. Review of Relevant I have reviewed the following items kirsten (where applicable) has been applied. Labs Laboratory Tests Test 01/24/21 21:27 01/24/21 22:08 01/26/21 06:55 White Blood Count 9.1 x10^3/uL (4.0-11.0) 8.3 x10^3/uL (4.0-11.0) Red Blood Count 4.52 x10^6/uL (3.50-5.40) 4.36 x10^6/uL (3.50-5.40) Hemoglobin 12.6 g/dL (12.0-15.5) 12.0 g/dL (12.0-15.5) Hematocrit 38.0 % (36.0-47.0) 36.8 % (36.0-47.0) Mean Corpuscular Volume 84 fL (79-100) 84 fL (79-100) Mean Corpuscular Hemoglobin 28 pg (25-35) 27 pg (25-35) Mean Corpuscular Hemoglobin Concent 33 g/dL (31-37) 33 g/dL (31-37) Red Cell Distribution Width 15.9 % (11.5-14.5) 15.6 % (11.5-14.5) Platelet Count 236 x10^3/uL (140-400) 225 x10^3/uL (140-400) Neutrophils (%) (Auto) 61 % (31-73) 52 % (31-73) Lymphocytes (%) (Auto) 31 % (24-48) 39 % (24-48) Monocytes (%) (Auto) 6 % (0-9) 7 % (0-9) Eosinophils (%) (Auto) 1 % (0-3) 1 % (0-3) Basophils (%) (Auto) 1 % (0-3) 1 % (0-3) Neutrophils # (Auto) 5.5 x10^3/uL (1.8-7.7) 4.3 x10^3/uL (1.8-7.7) Lymphocytes # (Auto) 2.9 x10^3/uL (1.0-4.8) 3.3 x10^3/uL (1.0-4.8) Monocytes # (Auto) 0.5 x10^3/uL (0.0-1.1) 0.6 x10^3/uL (0.0-1.1) Eosinophils # (Auto) 0.1 x10^3/uL (0.0-0.7) 0.1 x10^3/uL (0.0-0.7) Basophils # (Auto) 0.1 x10^3/uL (0.0-0.2) 0.0 x10^3/uL (0.0-0.2) Urine Collection Type U cath Urine Color Yellow Urine Clarity Clear Urine pH 5.0 (<5.0-8.0) Urine Specific [place] >=1.030 (1.000-1.030) Urine Protein Negative mg/dL (NEG-TRACE) Urine Glucose (UA) >=1000 mg/dL (NEG) Urine Ketones (Stick) Trace mg/dL (NEG) Urine Blood Negative (NEG) Urine Nitrite Negative (NEG) Urine Bilirubin Small (NEG) Urine Urobilinogen Dipstick 1.0 mg/dL (0.2 mg/dL) Urine Leukocyte Esterase Negative (NEG) Urine RBC 0 /HPF (0-2) Urine WBC 1-4 /HPF (0-4) Urine Squamous Epithelial Cells Few /LPF Urine Bacteria Few /HPF (0-FEW) Urine Mucus Mod /LPF Sodium Level 144 mmol/L (136-145) 145 mmol/L (136-145) Potassium Level 3.1 mmol/L (3.5-5.1) 3.6 mmol/L (3.5-5.1) Chloride Level 106 mmol/L (98-107) 111 mmol/L (98-107) Carbon Dioxide Level 27 mmol/L (21-32) 22 mmol/L (21-32) Anion Gap 11 (6-14) 12 (6-14) Blood Urea Nitrogen 12 mg/dL (7-20) 9 mg/dL (7-20) Creatinine 0.7 mg/dL (0.6-1.0) 0.6 mg/dL (0.6-1.0) Estimated GFR (Cockcroft-Gault) 81.6 97.5 BUN/Creatinine Ratio 17 (6-20) Glucose Level 119 mg/dL (70-99) 83 mg/dL (70-99) Lactic Acid Level 1.5 mmol/L (0.4-2.0) Calcium Level 8.5 mg/dL (8.5-10.1) 8.1 mg/dL (8.5-10.1) Magnesium Level 1.6 mg/dL (1.8-2.4) Total Bilirubin 0.7 mg/dL (0.2-1.0) Aspartate Amino Transf (AST/SGOT) 12 U/L (15-37) Alanine Aminotransferase (ALT/SGPT) 19 U/L (14-59) Alkaline Phosphatase 83 U/L (46-116) Creatine Kinase 28 U/L (26-192) Troponin I High Sensitivity 22 ng/L (4-50) NU-Bgn-A-Type Natriuretic Peptide 45909 pg/mL (0-449) Total Protein 6.2 g/dL (6.4-8.2) Albumin 3.2 g/dL (3.4-5.0) Albumin/Globulin Ratio 1.1 (1.0-1.7) Influenza Type A Antigen Negative (NEGATIVE) Influenza Type B Antigen Negative (NEGATIVE) SARS-CoV-2 RNA (JOANIE) Negative (Negative) SARS-CoV-2 Antigen (Rapid) Negative (NEGATIVE) Platelet Estimate Adequate (ADEQUATE) Large Platelets Present Laboratory Tests Test 01/26/21 06:55 White Blood Count 8.3 x10^3/uL (4.0-11.0) Red Blood Count 4.36 x10^6/uL (3.50-5.40) Hemoglobin 12.0 g/dL (12.0-15.5) Hematocrit 36.8 % (36.0-47.0) Mean Corpuscular Volume 84 fL (79-100) Mean Corpuscular Hemoglobin 27 pg (25-35) Mean Corpuscular Hemoglobin Concent 33 g/dL (31-37) Red Cell Distribution Width 15.6 % (11.5-14.5) Platelet Count 225 x10^3/uL (140-400) Neutrophils (%) (Auto) 52 % (31-73) Lymphocytes (%) (Auto) 39 % (24-48) Monocytes (%) (Auto) 7 % (0-9) Eosinophils (%) (Auto) 1 % (0-3) Basophils (%) (Auto) 1 % (0-3) Neutrophils # (Auto) 4.3 x10^3/uL (1.8-7.7) Lymphocytes # (Auto) 3.3 x10^3/uL (1.0-4.8) Monocytes # (Auto) 0.6 x10^3/uL (0.0-1.1) Eosinophils # (Auto) 0.1 x10^3/uL (0.0-0.7) Basophils # (Auto) 0.0 x10^3/uL (0.0-0.2) Platelet Estimate Adequate (ADEQUATE) Large Platelets Present Sodium Level 145 mmol/L (136-145) Potassium Level 3.6 mmol/L (3.5-5.1) Chloride Level 111 mmol/L (98-107) Carbon Dioxide Level 22 mmol/L (21-32) Anion Gap 12 (6-14) Blood Urea Nitrogen 9 mg/dL (7-20) Creatinine 0.6 mg/dL (0.6-1.0) Estimated GFR (Cockcroft-Gault) 97.5 Glucose Level 83 mg/dL (70-99) Calcium Level 8.1 mg/dL (8.5-10.1) Microbiology 01/24/21 Blood Culture - Preliminary, Resulted NO GROWTH AFTER 1 DAY Medications Current Medications Potassium Chloride/Sodium Chloride 1,000 ml @ 100 mls/hr Q10H IV Last administered on 01/24/21at 23:32; Start 01/24/21 at 23:45; Stop 01/25/21 at 09:44; Status DC Acetaminophen (Tylenol) 650 mg PRN Q4HRS PRN PO FEVER > 100.3'F; Start 01/24/21 at 23:45; Stop 01/25/21 at 23:44; Status DC Nitroglycerin (Nitrostat) 0.4 mg PRN Q5MIN PRN SL CHEST PAIN; Start 01/24/21 at 23:45; Stop 01/25/21 at 23:44; Status DC Magnesium Sulfate 50 ml @ 25 mls/hr 1X ONCE IV Last administered on 01/25/21at 01:00; Start 01/25/21 at 01:00; Stop 01/25/21 at 02:59; Status DC Influenza Virus Vaccine Quadrival (Flulaval Quad [id number] Syringe) 0.5 ml ONCE ONCE VAX IM Last administered on 01/25/21at 12:32; Start 01/25/21 at 09:00; Stop 01/25/21 at 09:01; Status DC Ceftriaxone Sodium (Rocephin) 1 gm Q24H IVP Last administered on 01/25/21at 09:00; Start 01/25/21 at 09:00 Sodium Chloride 1,000 ml @ 75 mls/hr [id number] IV Last administered on 01/26/21at 04:11; Start 01/25/21 at 09:00 Albuterol Sulfate (Ventolin Neb Soln) 2.5 mg PRN Q4HRS PRN NEB SHORTNESS OF BREATH Last administered on 01/25/21at 11:17; Start 01/25/21 at 10:45 Donepezil HCl (Aricept) 5 mg DAILY PO Last administered on 01/26/21at 08:43; Start 01/25/21 at 12:00 Trazodone HCl (Desyrel) 100 mg QHS PO Last administered on 01/25/21at 22:09; Start 01/25/21 at 21:00 Active Scripts Active Doxycycline Hyclate 100 Mg Capsule 1 Cap PO BID Aricept (Donepezil Hcl) 5 Mg Tablet 5 Mg PO DAILY 30 Days Jardiance (Empagliflozin) 10 Mg Tablet 10 Mg PO DAILY 30 Days Eliquis (Apixaban) 5 Mg Tablet 5 Mg PO BID 30 Days Reported Vitamin E (Vitamin E Mixed) 400 Unit Tablet 1 Tab PO QHS 30 Days Metoprolol Succinate ( Xl ) (Metoprolol Succinate) 25 Mg Tab.er.24h 1 Tab PO TID Vitamin D3 (Vitamin D) 125 Mcg Capsule 5,000 Mcg PO HS 5,000 UNITS = 125 MCG Duloxetine Hcl 20 Mg Capsule. 20 Mg PO HS Metformin Hcl Er (Metformin Hcl) 500 Mg Tab.er.24h 2 Tab PO BIDBFRMEAL Atorvastatin Calcium 40 Mg Tablet 40 Mg PO HS Losartan Potassium 25 Mg Tablet 25 Mg PO HS Trazodone Hcl 100 Mg Tablet 100 Mg PO QHS Fish Oil 1,400 Mg Softgel (Cavour-3/Dha/Epa/Fish Oil) 1 Each Capsule. 1 Each PO HS Vitals/I & O Vital Sign - Last 24 Hours 01/25/21 01/25/21 01/25/21 01/25/21 11:11 11:17 15:00 19:00 Temp 97.8 97.8 97.5 97.8 97.8 97.5 Pulse 90 94 96 Resp 18 18 22 B/P (MAP) 135/86 (102) 152/95 (114) 136/79 (98) Pulse Ox 96 97 95 95 O2 Delivery Room Air Room Air Room Air Room Air 01/25/21 01/25/21 01/26/21 01/26/21 20:00 23:00 03:00 07:00 Temp 97.8 97.9 98.1 97.8 97.9 98.1 Pulse 95 84 89 Resp 22 20 16 B/P (MAP) 136/76 (96) 129/71 (90) 138/75 (96) Pulse Ox 96 96 94 O2 Delivery Room Air Room Air Room Air Room Air 01/26/21 01/26/21 08:30 11:06 Temp 98.1 98.1 Pulse 90 Resp 18 B/P (MAP) 140/80 (100) Pulse Ox 95 O2 Delivery Room Air Room Air Intake and Output 01/25/21 01/25/21 01/26/21 15:00 23:00 07:00 Intake Total 220 ml 120 ml 1000 ml Balance 220 ml 120 ml 1000 ml Justicifation of Admission Dx: Justifications for Admission: Justification of Admission Dx: Yes JAKE ADAN MD Jan 26, 2021 11:10
--- NOTE | 2021-01-26 11:18 | DS ---
DATE OF DISCHARGE: 01/26/2021 ADMITTING DIAGNOSES: Failure to thrive and mental status change, chronic anticoagulation. DISCHARGE DIAGNOSES: Resolving mental status change, suspect new diagnosis of Alzheimer's per Neurology and we certainly agree. Hyperlipidemia, hypertension, diabetes, insomnia, chronic anticoagulation. HOSPITAL COURSE: The patient is a pleasant elderly female who presented with some mental status change and weakness. She was slowly felling at home. We admitted the patient, we consulted Neurology, did some physical therapy and occupational therapy, gave her fluids and empiric antibiotics as she had a slightly abnormal chest x-ray. Over the past 3 days, she slowly returned to baseline. She is pleasantly confused today when I saw and examined her. Her is at her bedside, wants to get her home. Dr. Tovar put her on some Aricept 5 a day. We certainly agree and appreciate his input. We will go ahead and discharge her. DISPOSITION: Home. ACTIVITY: As tolerated. DIET: Low sodium. MEDICATIONS: Please see the MRAD. Aricept 5 a day, doxycycline 100 p.o. b.i.d. for 1 more week, Eliquis 5 b.i.d. Atorvastatin 40 a day, vitamin D, duloxetine 20 a day, Jardiance 10 a day, losartan 25 a day, metformin 1000 b.i.d., metoprolol 25 a day, fish oil, trazodone 100 at bedtime, and vitamin E. TOTAL TIME: 34 minutes. JARETT/YEIMY DR: JARETT/angel TID: [id number]
--- NOTE | 2021-01-26 12:39 | NUR ---
SW following. Discussed with RN, discharge order for home with home health. SW met with pt and pt's , Min. Min is agreeable, does not have a preference. SW notified Dayanara Gallagher RN of referral, requested SW to also see pt at home to assist with guiding to get DPOA paperwork through a crown wheel assembler due to pt's memory. SW will continue to follow.
--- NOTE | 2021-01-26 13:59 | NUR ---
Discharge Note: [facility] [place] Discharge instructions and discharge home medications reviewed with Spouse and a copy given. All questions have been answered and understanding verbalized. The following instructions and handouts were given: discharge instructions, new prescriptions, education and follow up recommendations. Discontinued lines and drains: Peripheral IV discontinued intact. Patient discharged to Home w/services with Spouse via Wheelchair off unit by REDDY.
[2021-01-26] MEDS ORDERED: LACTOBACILLUS RHAMNOSUS GG 1 CAPSULE. PO SCH (21:00)
== END 2021-01-26 13:59 | disposition home health service (06) | DRG 71 ==
LOC: ER 20:48 → 4 NORTH 23:30 → 5 NORTH 01-25 00:54
PROVIDERS: ADMIT Internal Medicine; ATTEND Internal Medicine
DX: G93.41 Metabolic encephalopathy (principal); R47.01 Aphasia; G30.9 Alzheimer's disease, unspecified; E87.6 Hypokalemia; E11.9 Type 2 diabetes mellitus without complications; E78.00 Pure hypercholesterolemia, unspecified; E78.5 Hyperlipidemia, unspecified; F02.80 Dementia in other diseases classified elsewhere, unspecified severity, without behavioral disturbance, psychotic disturbance, mood disturbance, and anxiety; G47.00 Insomnia, unspecified; I10 Essential (primary) hypertension; I48.0 Paroxysmal atrial fibrillation; R62.7 Adult failure to thrive; S00.03XA Contusion of scalp, initial encounter; Y92.009 Unspecified place in unspecified non-institutional (private) residence as the place of occurrence of the external cause; Z79.01 Long term (current) use of anticoagulants; Z82.49 Family history of ischemic heart disease and other diseases of the circulatory system; Z83.3 Family history of diabetes mellitus; Z90.710 Acquired absence of both cervix and uterus; Z91.81 History of falling; Z96.659 Presence of unspecified artificial knee joint; Z66 Do not resuscitate
CPT/HCPCS: 36415; 70450; 71045; 72125; 80048; 80053; 81001; 82550; 83605; 83735; 83880; 84484; 85025; 87040; 87426; 87804; 90471; 90686; 93005; 94640; 94760; 96365; 96375; J0696; J3475; J3480; J7030; U0003; U0005; 97535-GO; 99285-25; G0378; J7613

== ENCOUNTER 2021-02-02 09:32 | Inpatient (IN) | payer BC ==
[~2021-02-02] VITALS: Ht 160 cm; Wt 53.4 kg
[~2021-02-02 09:32] MED LIST changes: +DONE5TAB56 PO; +DOXY100C3 PO; +VITA400T6 PO
--- NOTE | 2021-02-02 10:19 | PHYS DOC ---
Past Medical History Past Medical History: Diabetes-Type II, High Cholesterol, Hypertension Additional Past Medical Histor: Heart murmur, alzheimers Past Surgical History: Hysterectomy, Knee Replacement Additional Past Surgical Histo: L shoulder surgery Smoking Status: Never Smoker Alcohol Use: None Drug Use: None General Adult EDM: Chief Complaint: SHORTNESS OF BREATH HPI: HPI: Patient is a 75-year-old female that presents today for decreased appetite and decreased alertness per reported from the . Per the patient over the last couple days has had increased lethargy and decreased appetite, states that he was here early January for the same symptoms patient was admitted to the hospital for 3 days and then was discharged. This ENAMEL MACHINE OPERATOR reviewed the discharge summary and consultation reports from neurology from the visit in early January 2021, patient was admitted for failure to thrive and possible Alzheimer's. Patient was seen by neurology was diagnosed with some Alzheimer's symptom was placed on Aricept and was to follow-up with neurology, patient was also given while in the hospital empirical antibiotics and IV fluids for rehydration. denies patient has fallen, just states she is not acting right Review of Systems: Review of Systems: Review of systems was completed by the due to patient's inability to communicate due to her Alzheimer's disease. Constitutional: Denies fever or chills. [] Eyes: Denies change in visual acuity. [] HENT: Denies nasal congestion or sore throat. [] Respiratory: Denies cough or shortness of breath. [] Cardiovascular: Denies chest pain or edema. [] GI: Denies abdominal pain, nausea, vomiting, bloody stools or diarrhea. [] : Denies dysuria. [] Musculoskeletal: Denies back pain or joint pain. [] Integument: Denies rash. [] Neurologic: Generalized weakness, decreased appetite both reported by the Endocrine: Denies polyuria or polydipsia. [] Lymphatic: Denies swollen glands. [] Psychiatric: Denies depression or anxiety. [] Heart Score: C/O Chest Pain: N/A Risk Factors: Risk Factors: DM, Current or recent (<one month) smoker, HTN, HLP, family history of CAD, obesity. Risk Scores: Score 0 - 3: 2.5% MACE over next 6 weeks - Discharge Home Score 4 - 6: 20.3% MACE over next 6 weeks - Admit for Clinical Observation Score 7 - 10: 72.7% MACE over next 6 weeks - Early Invasive Strategies Allergies: Allergies: Allergies Coded Allergies Type Severity Reaction Last Updated Verified No Known Drug Allergies 02/02/21 No Physical Exam: PE: Constitutional: Frail elderly woman lethargic not interactive with environment appears ill HENT: Normocephalic, atraumatic, bilateral external ears normal, mucous membranes dry Eyes: PERRLA, EOMI, conjunctiva normal, no discharge. [] Neck: Normal range of motion, no tenderness, supple, no stridor. [] Cardiovascular surveillance monitor shows sinus rhythm with ectopy, heart murmur noted, peripheral pulses 1+, trace edema bilateral extremities Lungs & Thorax: Bilateral breath sounds clear to auscultation [] Abdomen: Bowel sounds normal, soft, no tenderness, no masses, no pulsatile masses. [] Skin: Skin is cool to touch and pale, no rash noted Back: No tenderness, no CVA tenderness. [] Extremities: No tenderness, no cyanosis, no clubbing, ROM intact, no edema. [] Neurologic: Patient is somewhat alert, does not interact with environment, generalized weakness noted Psychologic: Affect flat, dementia, no outwardly disease signs that she is interactive with her environment Current Patient Data: Labs: Laboratory Tests Test 02/02/21 10:28 02/02/21 10:32 02/02/21 10:40 White Blood Count 10.9 x10^3/uL Red Blood Count 5.06 x10^6/uL Hemoglobin 14.2 g/dL Hematocrit 43.0 % Mean Corpuscular Volume 85 fL Mean Corpuscular Hemoglobin 28 pg Mean Corpuscular Hemoglobin Concent 33 g/dL Red Cell Distribution Width 16.3 % Platelet Count 304 x10^3/uL Neutrophils (%) (Auto) 72 % Lymphocytes (%) (Auto) 21 % Monocytes (%) (Auto) 7 % Eosinophils (%) (Auto) 0 % Basophils (%) (Auto) 1 % Neutrophils # (Auto) 7.8 x10^3/uL Lymphocytes # (Auto) 2.3 x10^3/uL Monocytes # (Auto) 0.7 x10^3/uL Eosinophils # (Auto) 0.0 x10^3/uL Basophils # (Auto) 0.1 x10^3/uL Sodium Level 145 mmol/L Potassium Level 3.9 mmol/L Chloride Level 109 mmol/L Carbon Dioxide Level 19 mmol/L Anion Gap 17 Blood Urea Nitrogen 19 mg/dL Creatinine 0.9 mg/dL Estimated GFR (Cockcroft-Gault) 61.0 BUN/Creatinine Ratio 21 Glucose Level 153 mg/dL Calcium Level 9.1 mg/dL Total Bilirubin 1.5 mg/dL Aspartate Amino Transf (AST/SGOT) 219 U/L Alanine Aminotransferase (ALT/SGPT) 261 U/L Alkaline Phosphatase 284 U/L Troponin I High Sensitivity 44 ng/L Total Protein 6.2 g/dL Albumin 3.5 g/dL Albumin/Globulin Ratio 1.3 Influenza Type A Antigen Negative Influenza Type B Antigen Negative SARS-CoV-2 Antigen (Rapid) Negative Urine Collection Type Unknown Urine Color Elle Urine Clarity Cloudy Urine pH 5.0 Urine Specific [place] >=1.030 Urine Protein 100 mg/dL Urine Glucose (UA) >=1000 mg/dL Urine Ketones (Stick) Negative mg/dL Urine Blood Negative Urine Nitrite Negative Urine Bilirubin Small Urine Urobilinogen Dipstick 1.0 mg/dL Urine Leukocyte Esterase Negative Urine RBC 0 /HPF Urine WBC 1-4 /HPF Urine Squamous Epithelial Cells Few /LPF Urine Amorphous Sediment Present /HPF Urine Bacteria Few /HPF Urine Mucus Slight /LPF Vital Signs: Vital Signs Date Time Temp Pulse Resp B/P (MAP) Pulse Ox O2 Delivery O2 Flow Rate FiO2 02/02/21 11:53 91 28 133/78 (96) 2 Nasal Cannula 02/02/21 10:37 92 28 133/78 (96) 100 Room Air 02/02/21 10:02 97.9 92 32 147/78 (101) 97 Room Air 97.9 Vital Signs Date Time Temp Pulse Resp B/P (MAP) Pulse Ox O2 Delivery O2 Flow Rate FiO2 02/02/21 10:02 97.9 92 32 147/78 (101) 97 Room Air 97.9 EKG: EKG: EKG done at 10:[address] Smith at 1001 shows sinus rhythm no STEMI RI interval is 142 ms QT interval is 392 ms Radiology/Procedures: Radiology/Procedures: REASON: mental status change PROCEDURE: CT HEAD WO CONTRAST EXAM: Head CT without contrast. HISTORY: Mental status changes. TECHNIQUE: Computed tomographic images of the head were obtained without contrast. *One or more of the following individualized dose reduction techniques were utilized for this examination: 1. Automated exposure control. 2. Adjustment of the mA and/or kV according to patient size. 3. Use of iterative reconstruction technique. COMPARISON: 01/24/2021. FINDINGS: The exam is limited due to motion. There is no hemorrhage. There are extensive scattered areas of hypodensity within the cerebral white matter, stable compared to the prior exam. There is no mass effect or midline shift. There is no hydrocephalus. The visualized portions of the orbits, paranasal sinuses mastoid air cells are unremarkable. There is no suspicious calvarial lesion. IMPRESSION: 1. Limited exam due to motion. 2. No acute intracranial finding. MRI is more sensitive for acute infarction. 3. Extensive bilateral cerebral white matter changes, most commonly due to chronic small vessel disease. 4. Cerebral atrophy. Electronically signed by: Yaneth Doshi MD (02/02/2021 11:33 AM) [id number] [REASON: change in mental status PROCEDURE: CHEST AP ONLY EXAM: Chest, single view. HISTORY: Mental status changes. COMPARISON: 10/27/2020 FINDINGS: A frontal view of the chest is obtained. There is no infiltrate, pleural effusion or pneumothorax. There is a prominent cardiac silhouette. IMPRESSION: No acute pulmonary finding. Electronically signed by: Yaneth Doshi MD (02/02/2021 11:04 AM) [id number] ] Course & Med Decision Making: Course & Med Decision Making Pertinent Labs and Imaging studies reviewed. (See chart for details [id number] patient reassessed, patient more alert able to tell this ENAMEL MACHINE OPERATOR if she has any pain including her abdominal area she denies pain at this time is orientated to self, due to elevated liver enzymes and the change of her mental status will contact hospitalist group for admission. Add an ammonia level to her labs here in the emergency department [] [id number] Leonardo about admitting he is agreeable with admission, spoke to about CODE STATUS at this time would like patient a full code and would like to discuss with inpatient team regarding her her status later on. Jason Disclaimer: Jason Disclaimer: This electronic medical record was generated, in whole or in part, using a voice recognition dictation system. Departure Departure Impression: Primary Impression: Elevated liver enzymes Additional Impression: Mental status, decreased Disposition: ADMITTED INPATIENT Admitting Physician: KAMILAH Condition: GUARDED Referrals: UNKNOWN PCP NAME (PCP) TAINA MCBRIDE ENAMEL MACHINE OPERATOR Feb 02, 2021 10:19
[2021-02-02 10:38] LABS: BASO # 0.1 x10^3/uL (0.0-0.2); BASO % 1 % (0-3); EOS % 0 % (0-3); HEMOGLOBIN 14.2 g/dL (12.0-15.5); LYMPH # 2.3 x10^3/uL (1.0-4.8); LYMPH % 21 % (24-48); MEAN CORPUSCULAR HEMOGLOBIN 28 pg (25-35); MEAN CORPUSCULAR HGB CONC 33 g/dL (31-37); MEAN CORPUSCULAR VOLUME 85 fL (79-100); MONO # 0.7 x10^3/uL (0.0-1.1); MONO % 7 % (0-9); NEUT # 7.8 x10^3/uL (1.8-7.7); NEUT % 72 % (31-73); PLATELET COUNT 304 x10^3/uL (140-400); RED BLOOD COUNT 5.06 x10^6/uL (3.50-5.40); RED CELL DISTRIBUTION WIDTH 16.3 % (11.5-14.5); WHITE BLOOD COUNT 10.9 x10^3/uL (4.0-11.0)
[2021-02-02 10:53] LABS: BILIRUBIN,URINE SMALL (NEG); CLARITY,URINE CLOUDY; COLOR,URINE AMBER; NITRITE,URINE NEGATIVE (NEG); PROTEIN,URINE 100 mg/dL (NEG-TRACE)
[2021-02-02 11:00] LABS: AMORPHOUS SEDIMENT,UR PRESENT /HPF; BACTERIA,URINE FEW /HPF (0-FEW); RBC,URINE 0 /HPF (0-2)
[2021-02-02 11:01] LABS: INFLUENZA A PATIENT NEGATIVE (NEGATIVE); INFLUENZA B PATIENT NEGATIVE (NEGATIVE)
[2021-02-02 11:06] LABS: CALCIUM 9.1 mg/dL (8.5-10.1); CREATININE 0.9 mg/dL (0.6-1.0); POTASSIUM 3.9 mmol/L (3.5-5.1)
--- NOTE | 2021-02-02 11:06 | RAD ---
EXAM: Chest, single view. HISTORY: Mental status changes. COMPARISON: 10/27/2020 FINDINGS: A frontal view of the chest is obtained. There is no infiltrate, pleural effusion or pneumo thorax. There is a prominent cardiac silhouette. IMPRESSION: No acute pulmonary finding. Electronically signed by: Yaneth Doshi MD (02/02/2021 11:04 AM) [id number]
[2021-02-02 11:08] LABS: ALBUMIN 3.5 g/dL (3.4-5.0); ALBUMIN/GLOBULIN RATIO 1.3 (1.0-1.7); TOTAL BILIRUBIN 1.5 mg/dL (0.2-1.0); TOTAL PROTEIN 6.2 g/dL (6.4-8.2)
--- NOTE | 2021-02-02 11:36 | RAD ---
EXAM: Head CT without contrast. HISTORY: Mental status changes. TECHNIQUE: Computed tomographic images of the head were obtained without contrast. *One or more of the following individualized dose reduction techniques were utilized for this examina tion: 1. Automated exposure control. 2. Adjustment of the mA and/or kV according to patient size. 3. Use of iterative reconstruction technique. COMPARISON: 01/24/2021. FINDINGS: The exam is limited due to motion. There is no hemorrhage. There are extensive scattered ar eas of hypodensity within the cerebral white matter, stable compared to the prior exam. There is no m ass effect or midline shift. There is no hydrocephalus. The visualized portions of the orbits, parana mario sinuses mastoid air cells are unremarkable. There is no suspicious calvarial lesion. IMPRESSION: 1. Limited exam due to motion. 2. No acute intracranial finding. MRI is more sensitive for acute infarction. 3. Extensive bilateral cerebral white matter changes, most commonly due to chronic small vessel disea se. 4. Cerebral atrophy. Electronically signed by: Yaneth Doshi MD (02/02/2021 11:33 AM) [id number]
--- NOTE | 2021-02-02 13:05 | PDOC1 ---
History and Physical Date of Service: DOS: DATE: 02/02/21 TIME: 13:04 Chief Complaint: Chief Complain: Weakness History of Present Illness: HPI: History obtained from discussion with the ED physician, the and chart review 75-year-old female with past medical history of diabetes mellitus type 2, dyslipidemia, hypertension, atrial fibrillation on Eliquis who comes in with decrease in appetite and alertness as per the . Over the past couple days she has had more decrease in appetite, lethargy, confusion. Patient already has some baseline dementia with some confusion but states that this has been worsening in the past 3 days. Patient was actually here 3 days ago for the same reason and evaluated by neurology in which she was discharged on donepezil. denies patient has fallen, just states she is not acting right. Denies fevers, endorses some vomiting this morning,. Denies diarrhea or hematuria or dysuria or syncope. Past Medical/Surgical History: PMH/PSH: Past Medical History: Diabetes-Type II, High Cholesterol, Hypertension, Heart murmur, alzheimers Past Surgical History: Hysterectomy, Knee Replacement, L shoulder surgery Allergies: Allergies: Coded Allergies: No Known Drug Allergies (Unverified , 02/02/21) Family History: Family History: Reviewed with no relevant findings Social History: Social History: Smoking Status: Never Smoker Alcohol Use: None Drug Use: None Current Medications: Current Medications Active Scripts Active Doxycycline Hyclate 100 Mg Capsule 1 Cap PO BID Aricept (Donepezil Hcl) 5 Mg Tablet 5 Mg PO DAILY 30 Days Jardiance (Empagliflozin) 10 Mg Tablet 10 Mg PO DAILY 30 Days Eliquis (Apixaban) 5 Mg Tablet 5 Mg PO BID 30 Days Reported Vitamin E (Vitamin E Mixed) 400 Unit Tablet 1 Tab PO QHS 30 Days Metoprolol Succinate ( Xl ) (Metoprolol Succinate) 25 Mg Tab.er.24h 1 Tab PO TID Vitamin D3 (Vitamin D) 125 Mcg Capsule 5,000 Mcg PO HS 5,000 UNITS = 125 MCG Duloxetine Hcl 20 Mg Capsule.dr 20 Mg PO HS Metformin Hcl Er (Metformin Hcl) 500 Mg Tab.er.24h 2 Tab PO BIDBFRMEAL Atorvastatin Calcium 40 Mg Tablet 40 Mg PO HS Losartan Potassium 25 Mg Tablet 25 Mg PO HS Trazodone Hcl 100 Mg Tablet 100 Mg PO QHS Fish Oil 1,400 Mg Softgel ([place]-3/Dha/Epa/Fish Oil) 1 Each Capsule. 1 Each PO HS ROS: Review of Systems Review of System Limited due to dementia Physical Exam: Vital Signs: Vital Signs Date Time Temp Pulse Resp B/P (MAP) Pulse Ox O2 Delivery O2 Flow Rate FiO2 02/02/21 11:53 91 28 133/78 (96) 2 Nasal Cannula 02/02/21 10:02 97.9 97.9 Physcial Exam: General: Patient is somewhat alert, does not interact with environment, generalized weakness noted HEENT: Pupils equally round and reactive to light, EOMI, no discharge, normal conjunctiva Neck: Supple, no nuchal rigidity, no JVD, trachea midline, no tenderness Cardiac: RRR, no murmurs, no gallops, no rubs no S3 or JVD Chest/Lungs: CTAB, no wheeze, no rhonchi, no crackles Abdomen: soft, non-distended, no guarding, no peritoneal signs, non-tender Back: No tenderness Extremities: +1 pedal edema, pulses intact, non-tender,capillary refill <3 sec bilateral upper and lower extremities, Neuro: Alert and oriented x 4, no focal deficits, normal speech Labs: Labs: Laboratory Tests Test 02/02/21 10:28 02/02/21 10:32 02/02/21 10:40 White Blood Count 10.9 x10^3/uL (4.0-11.0) Red Blood Count 5.06 x10^6/uL (3.50-5.40) Hemoglobin 14.2 g/dL (12.0-15.5) Hematocrit 43.0 % (36.0-47.0) Mean Corpuscular Volume 85 fL (79-100) Mean Corpuscular Hemoglobin 28 pg (25-35) Mean Corpuscular Hemoglobin Concent 33 g/dL (31-37) Red Cell Distribution Width 16.3 % (11.5-14.5) Platelet Count 304 x10^3/uL (140-400) Neutrophils (%) (Auto) 72 % (31-73) Lymphocytes (%) (Auto) 21 % (24-48) Monocytes (%) (Auto) 7 % (0-9) Eosinophils (%) (Auto) 0 % (0-3) Basophils (%) (Auto) 1 % (0-3) Neutrophils # (Auto) 7.8 x10^3/uL (1.8-7.7) Lymphocytes # (Auto) 2.3 x10^3/uL (1.0-4.8) Monocytes # (Auto) 0.7 x10^3/uL (0.0-1.1) Eosinophils # (Auto) 0.0 x10^3/uL (0.0-0.7) Basophils # (Auto) 0.1 x10^3/uL (0.0-0.2) Sodium Level 145 mmol/L (136-145) Potassium Level 3.9 mmol/L (3.5-5.1) Chloride Level 109 mmol/L (98-107) Carbon Dioxide Level 19 mmol/L (21-32) Anion Gap 17 (6-14) Blood Urea Nitrogen 19 mg/dL (7-20) Creatinine 0.9 mg/dL (0.6-1.0) Estimated GFR (Cockcroft-Gault) 61.0 BUN/Creatinine Ratio 21 (6-20) Glucose Level 153 mg/dL (70-99) Calcium Level 9.1 mg/dL (8.5-10.1) Total Bilirubin 1.5 mg/dL (0.2-1.0) Aspartate Amino Transf (AST/SGOT) 219 U/L (15-37) Alanine Aminotransferase (ALT/SGPT) 261 U/L (14-59) Alkaline Phosphatase 284 U/L (46-116) Troponin I High Sensitivity 44 ng/L (4-50) Total Protein 6.2 g/dL (6.4-8.2) Albumin 3.5 g/dL (3.4-5.0) Albumin/Globulin Ratio 1.3 (1.0-1.7) Influenza Type A Antigen Negative (NEGATIVE) Influenza Type B Antigen Negative (NEGATIVE) SARS-CoV-2 Antigen (Rapid) Negative (NEGATIVE) Urine Collection Type Unknown Urine Color Elle Urine Clarity Cloudy Urine pH 5.0 (<5.0-8.0) Urine Specific [place] >=1.030 (1.000-1.030) Urine Protein 100 mg/dL (NEG-TRACE) Urine Glucose (UA) >=1000 mg/dL (NEG) Urine Ketones (Stick) Negative mg/dL (NEG) Urine Blood Negative (NEG) Urine Nitrite Negative (NEG) Urine Bilirubin Small (NEG) Urine Urobilinogen Dipstick 1.0 mg/dL (0.2 mg/dL) Urine Leukocyte Esterase Negative (NEG) Urine RBC 0 /HPF (0-2) Urine WBC 1-4 /HPF (0-4) Urine Squamous Epithelial Cells Few /LPF Urine Amorphous Sediment Present /HPF Urine Bacteria Few /HPF (0-FEW) Urine Mucus Slight /LPF Laboratory Tests Test 02/02/21 10:28 02/02/21 10:32 02/02/21 10:40 White Blood Count 10.9 x10^3/uL (4.0-11.0) Red Blood Count 5.06 x10^6/uL (3.50-5.40) Hemoglobin 14.2 g/dL (12.0-15.5) Hematocrit 43.0 % (36.0-47.0) Mean Corpuscular Volume 85 fL (79-100) Mean Corpuscular Hemoglobin 28 pg (25-35) Mean Corpuscular Hemoglobin Concent 33 g/dL (31-37) Red Cell Distribution Width 16.3 % (11.5-14.5) Platelet Count 304 x10^3/uL (140-400) Neutrophils (%) (Auto) 72 % (31-73) Lymphocytes (%) (Auto) 21 % (24-48) Monocytes (%) (Auto) 7 % (0-9) Eosinophils (%) (Auto) 0 % (0-3) Basophils (%) (Auto) 1 % (0-3) Neutrophils # (Auto) 7.8 x10^3/uL (1.8-7.7) Lymphocytes # (Auto) 2.3 x10^3/uL (1.0-4.8) Monocytes # (Auto) 0.7 x10^3/uL (0.0-1.1) Eosinophils # (Auto) 0.0 x10^3/uL (0.0-0.7) Basophils # (Auto) 0.1 x10^3/uL (0.0-0.2) Sodium Level 145 mmol/L (136-145) Potassium Level 3.9 mmol/L (3.5-5.1) Chloride Level 109 mmol/L (98-107) Carbon Dioxide Level 19 mmol/L (21-32) Anion Gap 17 (6-14) Blood Urea Nitrogen 19 mg/dL (7-20) Creatinine 0.9 mg/dL (0.6-1.0) Estimated GFR (Cockcroft-Gault) 61.0 BUN/Creatinine Ratio 21 (6-20) Glucose Level 153 mg/dL (70-99) Calcium Level 9.1 mg/dL (8.5-10.1) Total Bilirubin 1.5 mg/dL (0.2-1.0) Aspartate Amino Transf (AST/SGOT) 219 U/L (15-37) Alanine Aminotransferase (ALT/SGPT) 261 U/L (14-59) Alkaline Phosphatase 284 U/L (46-116) Troponin I High Sensitivity 44 ng/L (4-50) Total Protein 6.2 g/dL (6.4-8.2) Albumin 3.5 g/dL (3.4-5.0) Albumin/Globulin Ratio 1.3 (1.0-1.7) Influenza Type A Antigen Negative (NEGATIVE) Influenza Type B Antigen Negative (NEGATIVE) SARS-CoV-2 Antigen (Rapid) Negative (NEGATIVE) Urine Collection Type Unknown Urine Color Elle Urine Clarity Cloudy Urine pH 5.0 (<5.0-8.0) Urine Specific [place] >=1.030 (1.000-1.030) Urine Protein 100 mg/dL (NEG-TRACE) Urine Glucose (UA) >=1000 mg/dL (NEG) Urine Ketones (Stick) Negative mg/dL (NEG) Urine Blood Negative (NEG) Urine Nitrite Negative (NEG) Urine Bilirubin Small (NEG) Urine Urobilinogen Dipstick 1.0 mg/dL (0.2 mg/dL) Urine Leukocyte Esterase Negative (NEG) Urine RBC 0 /HPF (0-2) Urine WBC 1-4 /HPF (0-4) Urine Squamous Epithelial Cells Few /LPF Urine Amorphous Sediment Present /HPF Urine Bacteria Few /HPF (0-FEW) Urine Mucus Slight /LPF Images: Images PROCEDURE: CT HEAD WO CONTRAST IMPRESSION: 1. Limited exam due to motion. 2. No acute intracranial finding. MRI is more sensitive for acute infarction. 3. Extensive bilateral cerebral white matter changes, most commonly due to chronic small vessel disease. 4. Cerebral atrophy. PROCEDURE: CHEST AP ONLY IMPRESSION: No acute pulmonary finding. Assessment/Plan Assessment/Plan Failure to thrive Generalized weakness Acute on chronic CHF, systolic CHF with LVEF 20 to 25% in October 2020 Elevated BNP suggestive of possible volume overload Mild transaminitis, possibly related to CHF or recent initiation of donepezil Acute hypoactive delirium with underlying dementia History of moderate to severe dementia History of paroxysmal atrial fibrillation normal sinus rhythm on Eliquis History of diabetes mellitus type 2 History of dyslipidemia Admit to hospitalist service for further management cardiology consult PT OT consult Speech evaluation Lasix IV x1 for elevated BNP We will hold centrally acting medications due to exacerbation of her dementia. Hold donepezil for now Eliquis for DVT prophylaxis ADA diet CODE STATUS DNR Discussed with RN and SW Disposition inpatient management as above DPOA: Justifications for Admission Other Justification PEARL CHRISTENSEN MD Feb 02, 2021 13:05
[2021-02-02] MEDS ORDERED: ONDANSETRON PF 4 MG/2 ML VIAL. IVP PRN (14:00)
[2021-02-02] MEDS ORDERED: DEXTROSE 50% 25 GM / 50ML DISP.SYRIN. IV PRN (14:00)
[2021-02-02] MEDS ORDERED: SENNOSIDES 8.6 MG TABLET PO PRN (14:00)
[2021-02-02] MEDS ORDERED: ZOLPIDEM 5 MG TABLET. PO PRN (14:00)
[2021-02-02] MEDS ORDERED: ACETAMINOPHEN 325 MG TABLET. PO PRN (14:00)
[2021-02-02] MEDS ORDERED: DOCUSATE SODIUM 100 MG CAPSULE. PO PRN (14:00)
[2021-02-02] MEDS ORDERED: PROCHLORPERAZINE 10 MG/2 ML VIAL. IV PRN (14:00)
[2021-02-02] MEDS ORDERED: LORazepam 0.5 MG TABLET PO PRN (14:00)
[2021-02-02] MEDS ORDERED: HEPARIN for SUB-Q USE 5,000 UNIT/ML VIAL. SQ SCH (14:00)
--- NOTE | 2021-02-02 15:47 | EKG ---
[facility] [address] [place] [address] Test Date: 2021-02-02 Test Time: 10:00:09 Pat Name: SEKOU DE SOUZA Department: Room: Gender: F Associate [employer]: : 1945 Requested By: TAINA MCBRIDE Order Number: [id number] Reading MD: Norman Lima Measurements Intervals [place] Rate: 95 P: 12 [place]: 142 QRS: -53 QRSD: 126 T: 75 QT: 392 QTc: 496 Interpretive Statements SINUS RHYTHM LEFT ATRIAL ABNORMALITY LEFT BUNDLE BRANCH BLOCK ABNORMAL ECG Electronically Signed On 02-06-2021 9:30:14 CAP MACHINE OPERATOR by Norman Lima
[2021-02-02] MEDS ORDERED: POTASSIUM CHLORIDE 20 MEQ TABLET.ER. PO ONE (16:00)
[2021-02-02] MEDS ORDERED: FUROSEMIDE 40 MG/4 ML VIAL. IVP ONE (16:00)
[2021-02-02] MEDS: METOPROLOL SUCC 24HR ER 25 MG TAB.ER.24H. PO SCH ×2 (18:06→22:00)
[2021-02-02] MEDS: APIXABAN 5 MG TABLET. PO SCH ×2 (18:06→22:01)
[2021-02-02] MEDS ORDERED: DULoxetine HCL 20 MG CAPSULE.DR PO SCH (21:00)
[2021-02-02] MEDS: ATORVASTATIN CALCIUM 40 MG TABLET. PO SCH (22:01)
[2021-02-02] MEDS: LOSARTAN POTASSIUM 25 MG TABLET. PO SCH (22:02)
[2021-02-02 23:34] VITALS: BP 131/79
[2021-02-02] MEDS: traZODone 100 MG TABLET. PO SCH (23:55)
[2021-02-03 03:04] VITALS: BP 135/63
[2021-02-03 07:00] VITALS: BP 134/70
[2021-02-03 07:12] LABS: CALCIUM 9.1 mg/dL (8.5-10.1); GFR 54.1; MAGNESIUM 2.2 mg/dL (1.8-2.4); POTASSIUM 4.9 mmol/L (3.5-5.1)
[2021-02-03 07:16] LABS: BASO % 0 % (0-3); EOS % 0 % (0-3); HEMATOCRIT 43.5 % (36.0-47.0); HEMOGLOBIN 13.8 g/dL (12.0-15.5); LYMPH # 2.4 x10^3/uL (1.0-4.8); LYMPH % 19 % (24-48); MEAN CORPUSCULAR HEMOGLOBIN 27 pg (25-35); MEAN CORPUSCULAR HGB CONC 32 g/dL (31-37); MEAN CORPUSCULAR VOLUME 86 fL (79-100); MONO # 1.2 x10^3/uL (0.0-1.1); MONO % 9 % (0-9); NEUT # 9.1 x10^3/uL (1.8-7.7); NEUT % 72 % (31-73); PLATELET COUNT 247 x10^3/uL (140-400); RED BLOOD COUNT 5.04 x10^6/uL (3.50-5.40); RED CELL DISTRIBUTION WIDTH 16.7 % (11.5-14.5); WHITE BLOOD COUNT 12.7 x10^3/uL (4.0-11.0)
--- NOTE | 2021-02-03 08:16 | PDOC2 ---
CRUZ HEWITT DEMI CHEF 02/03/21 0816: CARDIAC CONSULT DATE OF CONSULT Date of Consult DATE: 02/03/21 TIME: 08:13 REASON FOR CONSULT Reason for Consult: CHF REFERRING PHYSICIAN Referring Physician: Jorden SOURCE Source: Caregiver (spouse), Chart review HISTORY OF PRESENT ILLNESS HISTORY OF PRESENT ILLNESS This is a 75 yo female admitted for SOA. She is nonverbal for the most part and has Alzheimers dementia. Presently she does not have SOA but her HR is tachy and appears to be on AFIB/flutter with RVR with prior hx. She continues not to eat and weak. Her takes care of her. She has known CM and worse as of today. No recent falls or injury. No significant peripheral edema. PAST MEDICAL HISTORY Past Medical History Cardiovascular: HTN, Hyperlipidemia, NICM, CHF, PAFIB Pulmonary: No pertinent hx CENTRAL NERVOUS SYSTEM: Alzheimers GI: No pertinent hx Heme/Onc: No pertinent hx Hepatobiliary: No pertinent hx Psych: No pertinent hx Musculoskeletal: Osteoarthritis Rheumatologic: No pertinent hx Infectious disease: No pertinent hx ENT: No pertinent hx Renal/: No pertinent hx Endocrine: Diabetes (2) Dermatology: No pertinent hx PAST SURGICAL HISTORY Past Surgical History: Other (left shoulder surgery) FAMILY HISTORY Family History: Coronary Artery Disease SOCIAL HISTORY Smoke: No ALCOHOL: none Drugs: None Lives: with Family CURRENT MEDICATIONS CURRENT MEDICATIONS Current Medications Medications (Trade) Dose Ordered Sig/Javed Route PRN Reason Start Time Stop Time Status Last Admin Dose Admin Apixaban (Eliquis) 5 mg BID PO 02/02/21 14:15 02/02/21 22:01 Atorvastatin Calcium (Lipitor) 40 mg HS PO 02/02/21 21:00 02/02/21 22:01 Losartan Potassium (Cozaar) 25 mg HS PO 02/02/21 21:00 02/02/21 22:02 Metoprolol Succinate (Toprol Xl) 25 mg TID PO 02/02/21 15:00 02/02/21 22:00 Furosemide (Lasix) 40 mg 1X ONCE IVP 02/02/21 16:00 02/02/21 16:01 DC 02/02/21 18:07 Potassium Chloride (Klor-Con) 40 meq 1X ONCE PO 02/02/21 16:00 02/02/21 16:01 DC 02/02/21 18:07 ALLERGIES ALLERGIES: Coded Allergies: No Known Drug Allergies (Unverified , 02/02/21) ROS Review of System unreliable PHYSICAL EXAM General: Alert, Cooperative, No acute distress HEENT: Atraumatic, Mucous membr. moist/pink Lungs: Clear to auscultation, Normal air movement Heart: Other (AFIB RVR 120s 4/6 systolic murmur to apex and ESVIN border) Abdomen: Soft, No tenderness Extremities: No cyanosis, No edema Skin: No breakdown, No significant lesion Neuro: Sensation intact Psych/Mental Status: Other (nonverbal; lat affect) MUSCULOSKELETAL: Osteoarthritic changes both hands VITALS/I&O VITALS/I&O: Vital Signs Date Time Temp Pulse Resp B/P (MAP) Pulse Ox O2 Delivery O2 Flow Rate FiO2 02/03/21 03:04 97.6 96 20 135/63 (87) 98 Room Air 97.6 02/02/21 18:52 3.0 LABS Lab: Laboratory Tests Test 02/02/21 10:28 02/02/21 10:32 02/02/21 10:40 02/02/21 13:03 White Blood Count 10.9 x10^3/uL (4.0-11.0) Red Blood Count 5.06 x10^6/uL (3.50-5.40) Hemoglobin 14.2 g/dL (12.0-15.5) Hematocrit 43.0 % (36.0-47.0) Mean Corpuscular Volume 85 fL (79-100) Mean Corpuscular Hemoglobin 28 pg (25-35) Mean Corpuscular Hemoglobin Concent 33 g/dL (31-37) Red Cell Distribution Width 16.3 % (11.5-14.5) H Platelet Count 304 x10^3/uL (140-400) Neutrophils (%) (Auto) 72 % (31-73) Lymphocytes (%) (Auto) 21 % (24-48) L Monocytes (%) (Auto) 7 % (0-9) Eosinophils (%) (Auto) 0 % (0-3) Basophils (%) (Auto) 1 % (0-3) Neutrophils # (Auto) 7.8 x10^3/uL (1.8-7.7) H Lymphocytes # (Auto) 2.3 x10^3/uL (1.0-4.8) Monocytes # (Auto) 0.7 x10^3/uL (0.0-1.1) Eosinophils # (Auto) 0.0 x10^3/uL (0.0-0.7) Basophils # (Auto) 0.1 x10^3/uL (0.0-0.2) Sodium Level 145 mmol/L (136-145) Potassium Level 3.9 mmol/L (3.5-5.1) Chloride Level 109 mmol/L (98-107) H Carbon Dioxide Level 19 mmol/L (21-32) L Anion Gap 17 (6-14) H Blood Urea Nitrogen 19 mg/dL (7-20) Creatinine 0.9 mg/dL (0.6-1.0) Estimated GFR (Cockcroft-Gault) 61.0 BUN/Creatinine Ratio 21 (6-20) H Glucose Level 153 mg/dL (70-99) H Calcium Level 9.1 mg/dL (8.5-10.1) Total Bilirubin 1.5 mg/dL (0.2-1.0) H Aspartate Amino Transferase (AST) 219 U/L (15-37) H Alanine Aminotransferase (ALT) 261 U/L (14-59) H Alkaline Phosphatase 284 U/L (46-116) H Troponin I High Sensitivity 44 ng/L (4-50) Total Protein 6.2 g/dL (6.4-8.2) L Albumin 3.5 g/dL (3.4-5.0) Albumin/Globulin Ratio 1.3 (1.0-1.7) Influenza Type A Antigen Negative (NEGATIVE) Influenza Type B Antigen Negative (NEGATIVE) SARS-CoV-2 RNA (JOANIE) Negative (Negative) SARS-CoV-2 Antigen (Rapid) Negative (NEGATIVE) Urine Collection Type Unknown Urine Color Elle Urine Clarity Cloudy Urine pH 5.0 (<5.0-8.0) Urine Specific [place] >=1.030 (1.000-1.030) Urine Protein 100 mg/dL (NEG-TRACE) Urine Glucose (UA) >=1000 mg/dL (NEG) Urine Ketones (Stick) Negative mg/dL (NEG) Urine Blood Negative (NEG) Urine Nitrite Negative (NEG) Urine Bilirubin Small (NEG) Urine Urobilinogen Dipstick 1.0 mg/dL (0.2 mg/dL) Urine Leukocyte Esterase Negative (NEG) Urine RBC 0 /HPF (0-2) Urine WBC 1-4 /HPF (0-4) Urine Squamous Epithelial Cells Few /LPF Urine Amorphous Sediment Present /HPF Urine Bacteria Few /HPF (0-FEW) Urine Mucus Slight /LPF Ammonia < 10 mcmol/L (11-34) L QJ-Inw-P-Type Natriuretic Peptide 42477 pg/mL (0-449) H Test 02/02/21 15:57 02/03/21 06:00 Thyroid Stimulating Hormone (TSH) 1.052 uIU/mL (0.358-3.74) White Blood Count 12.7 x10^3/uL (4.0-11.0) H Red Blood Count 5.04 x10^6/uL (3.50-5.40) Hemoglobin 13.8 g/dL (12.0-15.5) Hematocrit 43.5 % (36.0-47.0) Mean Corpuscular Volume 86 fL (79-100) Mean Corpuscular Hemoglobin 27 pg (25-35) Mean Corpuscular Hemoglobin Concent 32 g/dL (31-37) Red Cell Distribution Width 16.7 % (11.5-14.5) H Platelet Count 247 x10^3/uL (140-400) Neutrophils (%) (Auto) 72 % (31-73) Lymphocytes (%) (Auto) 19 % (24-48) L Monocytes (%) (Auto) 9 % (0-9) Eosinophils (%) (Auto) 0 % (0-3) Basophils (%) (Auto) 0 % (0-3) Neutrophils # (Auto) 9.1 x10^3/uL (1.8-7.7) H Lymphocytes # (Auto) 2.4 x10^3/uL (1.0-4.8) Monocytes # (Auto) 1.2 x10^3/uL (0.0-1.1) H Eosinophils # (Auto) 0.0 x10^3/uL (0.0-0.7) Basophils # (Auto) 0.0 x10^3/uL (0.0-0.2) Platelet Estimate Pending Sodium Level 148 mmol/L (136-145) H Potassium Level 4.9 mmol/L (3.5-5.1) # Chloride Level 110 mmol/L (98-107) H Carbon Dioxide Level 18 mmol/L (21-32) L Anion Gap 20 (6-14) H Blood Urea Nitrogen 24 mg/dL (7-20) H Creatinine 1.0 mg/dL (0.6-1.0) Estimated GFR (Cockcroft-Gault) 54.1 Glucose Level 123 mg/dL (70-99) H Calcium Level 9.1 mg/dL (8.5-10.1) Phosphorus Level 6.0 mg/dL (2.6-4.7) H Magnesium Level 2.2 mg/dL (1.8-2.4) Laboratory Tests 02/02/21 10:28 02/03/21 06:00 Laboratory Tests 02/02/21 10:02/03/21 06:00 ECHOCARDIOGRAM ECHOCARDIOGRAM <Conclusion> The systolic function is severely impaired. The Ejection Fraction is 20-25%. Wall motion consistent with conductioin abnormality. The basal to distal anterior wall, septum are severely hypokinetic. The aortic valve is severe calcified and displays decreased opening. Although no clear evidence of stenosis by doppler assessment, consider low flow, low gradient . Doppler and Color-flow revealed at least moderate mitral regurgitation. DATE: 10/20/20 [id number] HEART CATH HEART CATH FINDINGS a. The left main coronary artery arose from the left sinus of Valsalva, gave rise to the left anterior descending and left circumflex arteries and did not show any significant stenosis. b. The left anterior descending artery did not show any significant stenosis. c. The left circumflex artery did not show any significant stenosis. d. The right coronary artery was a large and dominant vessel arising from the right sinus of Valsalva that did not show any significant stenosis. Conclusion No significant coronary artery disease Recommendations Optimization of medical therapy for nonischemic cardiomyopathy and repeat 2D echo in 3 months. DATE: 10/22/20 [id number] 0 ASSESSMENT/PLAN ASSESSMENT/PLAN 1. Acute on chronic systolic CHF: presnetly no SOA and no effusions 2. Severe NICM: EF at 15-20% 3. PAFIB with RVR 4. Probable severe and moderate MR 5. Alzheimers dementia: per PCP. recently noted. 6. FTT 7. DM2 8. HTN 9. Severe Transamintis: unclear etiology but perfusion issue could be contributing Recommendations 1. No IV access. Will treat with PO meds. Restart PO toprol per BP trend. Eliquis for stroke prevention. Dig PO x1 2. Discussed significantly with spouse and interested in pursuing hospice. Her intermediate prognosis is poor with associated Alzheimers, anorexia. Conservative measures. 3. Lasix recieved and will provide depending on her hydration and BP trend 4. May need inotropic support but will control HR first then will consider. At the present time she is not in distress and appears to be compensated. 5. Will discuss with PCP in regards to LFTs, consider KHARI Shelley MD 02/04/21 0923: CARDIAC CONSULT ASSESSMENT/PLAN ASSESSMENT/PLAN Patient seen and examined 02/03/2021. Agree with INCLUSION PARAEDUCATOR's assessment and plan. Acute on chronic systolic heart failure better compensated 2D echo showed LVEF 15 to 20%, probable severe and moderate MR Agree with restarting beta-blockers for AF rate control. Continue Eliquis for stroke prophylaxis. Doubt if patient is a good candidate for more aggressive interventions secondary to her dementia Family considering hospice Thank you for your consultation CRUZ HEWITT APRN Feb 03, 2021 08:16 KHARI FIGUEROA MD Feb 04, 2021 09:23
[2021-02-03] MEDS: APIXABAN 5 MG TABLET. PO SCH ×2 (08:25→19:31)
[2021-02-03] MEDS: METOPROLOL SUCC 24HR ER 25 MG TAB.ER.24H. PO SCH (08:26)
[2021-02-03 09:29] LABS: PLT ESTIMATE ADEQUATE (ADEQUATE)
--- NOTE | 2021-02-03 09:30 | CARD ---
MR#: [id number] Date of Study: 02/02/2021 Ordering Physician: PEARL CHRISTENSEN, Referring Physician: PEARL CHRISTENSEN, Tech: Mari Byrceradha [facility] APPROVED REPORT EXAM: Two-dimensional and M-mode echocardiogram with Doppler and color Doppler. Other Information Quality : GoodHR: 98bpm INDICATION Dizziness and Vertigo Congestive Heart Failure Elevated BNP RISK FACTORS Hypertension Hyperlipidemia Diabetes 2D DIMENSIONS RVDd3.5 (2.9-3.5cm)Left Atrium(2D)4.8 (1.6-4.0cm) IVSd0.9 (0.7-1.1cm)Aortic Root(2D)2.5 (2.0-3.7cm) LVDd5.6 (3.9-5.9cm)LVOT Diameter2.1 (1.8-2.4cm) PWd0.9 (0.7-1.1cm)LVDs4.5 (2.5-4.0cm) FS (%) 18.8 %SV58.3 ml LVEF(%)38.4 (>50%) Aortic Valve AoV Peak Moe.192.2cm/sAoV VTI33.6cm AO Peak GR.14.8mmHgLVOT VTI 5.79cm AO Mean GR.10mmHgAI P 1/2 [id number] Mitral Valve MV E Yiqnexro531.0cm/sMV E Peak Gr.98mmHg MV DECEL [id number] A Mkuyalpy66.6cm/s MV E Mean Gr.5mmHgE/A Ratio2.2 TDI Lateral E' P. V7.98cm/sMedial E' P. V4.25cm/s E/Lateral E'19.8E/Medial E'37.2 Tricuspid Valve TR P. [id number]/sRAP [id number] TR Peak Gr.[id number] LEFT VENTRICLE The left ventricle is normal size. There is normal left ventricular wall thickness. The Ejection Frac tion is 15-20%. The systolic function is severely impaired. The basal to distal inferior wall is arabella rely hypokinetic. The remainder of the LV is moderate to severely hypokinetic. Tissue Doppler imaging reveals moderate left ventricular diastolic dysfunction. RIGHT VENTRICLE The right ventricle is borderline dilated. There is normal right ventricular wall thickness. RV Systo lic function is mildly reduced. ATRIA The left atrium is moderately dilated. The right atrium is mildly dilated. The interatrial septum is intact with no evidence for an atrial septal defect or patent foramen ovale as noted on 2-D or Dopple r imaging. AORTIC VALVE The aortic valve is calcified and displays decreased opening. Probable severe aortic stenosis, gradie nts likely underestimated due to poor LV function. Doppler and Color Flow revealed mild aortic regurg itation. The aortic valve maximum pressure gradient of 21 mmHg and mean pressure gradient of 11 mmHg. MITRAL VALVE The mitral valve is mildly thickened. There is no evidence of mitral valve prolapse. The mitral valve has a mean gradient 4.82 mmHg consistent with mild mitral valve stenosis. Doppler and Color-flow rev ealed moderate mitral regurgitation. TRICUSPID VALVE The tricuspid valve is normal in structure and function. Doppler and Color Flow revealed mild to mode rate tricuspid regurgitation with an estimated PAP of 58 mmHg. There is no tricuspid valve stenosis. PULMONIC VALVE Doppler and Color Flow revealed trace pulmonic valvular regurgitation. There is no pulmonic valvular stenosis. GREAT VESSELS The aortic root is normal in size. The IVC is dilated and collapses <50% with inspiration. PERICARDIAL EFFUSION There is no evidence of significant pericardial effusion. Critical Notification Critical Value: No <Conclusion> The Ejection Fraction is 15-20%. The systolic function is severely impaired. The basal to distal inferior wall is severely hypokinetic. The remainder of the LV is moderate to sev erely hypokinetic. The aortic valve is calcified and displays decreased opening. Probable severe aortic stenosis, gradie nts likely underestimated due to poor LV function. Doppler and Color-flow revealed moderate mitral regurgitation. Doppler and Color Flow revealed mild to moderate tricuspid regurgitation with an estimated PAP of 58 mmHg. Signed by : Jose Gutierrez, Electronically Approved : 02/03/2021 09:30:20
--- NOTE | 2021-02-03 10:10 | NUR ---
SW following. Discussed with RN, [facility], room air, cardiac diet, COVID-19 negative. PT/OT/ST ordered. Dr. Cano potentially speaking to pt's about hospice. SW will continue to follow.
[2021-02-03 11:00] VITALS: BP 102/69
[2021-02-03] MEDS ORDERED: DIGOXIN 125 MCG TABLET. PO SCH (11:30)
--- NOTE | 2021-02-03 11:32 | PDOC ---
[facility] [facility] PROGRESS NOTE Date of Service DOS: DATE: 02/03/21 TIME: 11:27 Chief Complaint Chief Complaint Assessment/Plan Failure to thrive Generalized weakness Acute on chronic CHF, systolic CHF with LVEF 15-20% Elevated BNP suggestive of possible volume overload Mild transaminitis, possibly related to CHF or recent initiation of donepezil Acute hypoactive delirium with underlying dementia History of moderate to severe dementia History of paroxysmal atrial fibrillation normal sinus rhythm on Eliquis History of diabetes mellitus type 2 History of dyslipidemia Admit to hospitalist service for further management cardiology consult PT OT consult Speech evaluation Lasix IV x1 for elevated BNP; Cardiology consult We will hold centrally acting medications due to exacerbation of her dementia. Hold donepezil for now Eliquis for DVT prophylaxis ADA diet CODE STATUS DNR Discussed with RN and SW Disposition inpatient management as above DPOA: History of Present Illness History of Present Illness History obtained from discussion with the ED physician, the and chart review 75-year-old female with past medical history of diabetes mellitus type 2, dyslipidemia, hypertension, atrial fibrillation on Eliquis who comes in with decrease in appetite and alertness as per the . Over the past couple days she has had more decrease in appetite, lethargy, confusion. Patient already has some baseline dementia with some confusion but states that this has been worsening in the past 3 days. Patient was actually here 3 days ago for the same reason and evaluated by neurology in which she was discharged on donepezil. denies patient has fallen, just states she is not acting right. Denies fevers, endorses some vomiting this morning,. Denies diarrhea or hematuria or dysuria or syncope. 02/03 Patient evaluated examined at bedside. She was resting really would not arouse to voice. I discussed with the at bedside ongoing plan of care. I discussed with him the severity of her heart disease and how it may be difficult to manage with medications. I also discussed with him her CODE STATUS and he does endorse her being a DNR. Had a basic discussion of hospice with him and he was receptive. No decision made but He would like to discuss things with more family however. Cardiology following. Vitals/I&O Vitals/I&O: Vital Signs Date Time Temp Pulse Resp B/P (MAP) Pulse Ox O2 Delivery O2 Flow Rate FiO2 02/03/21 08:30 Room Air 11/18/21 08:26 119 134/70 02/03/21 07:00 97.5 16 98 97.5 02/02/21 18:52 3.0 Physical Exam General: No acute distress, Other (Not alert oriented) Heart: Regular rate Lungs: Clear Abdomen: Normal bowel sounds, Soft, No tenderness Extremities: No edema, Normal pulses Skin: No significant lesion Labs Labs: Laboratory Tests Test 02/02/21 13:03 02/02/21 15:57 02/03/21 06:00 Ammonia < 10 mcmol/L (11-34) UL-Myo-R-Type Natriuretic Peptide 95674 pg/mL (0-449) Thyroid Stimulating Hormone (TSH) 1.052 uIU/mL (0.358-3.74) White Blood Count 12.7 x10^3/uL (4.0-11.0) Red Blood Count 5.04 x10^6/uL (3.50-5.40) Hemoglobin 13.8 g/dL (12.0-15.5) Hematocrit 43.5 % (36.0-47.0) Mean Corpuscular Volume 86 fL (79-100) Mean Corpuscular Hemoglobin 27 pg (25-35) Mean Corpuscular Hemoglobin Concent 32 g/dL (31-37) Red Cell Distribution Width 16.7 % (11.5-14.5) Platelet Count 247 x10^3/uL (140-400) Neutrophils (%) (Auto) 72 % (31-73) Lymphocytes (%) (Auto) 19 % (24-48) Monocytes (%) (Auto) 9 % (0-9) Eosinophils (%) (Auto) 0 % (0-3) Basophils (%) (Auto) 0 % (0-3) Neutrophils # (Auto) 9.1 x10^3/uL (1.8-7.7) Lymphocytes # (Auto) 2.4 x10^3/uL (1.0-4.8) Monocytes # (Auto) 1.2 x10^3/uL (0.0-1.1) Eosinophils # (Auto) 0.0 x10^3/uL (0.0-0.7) Basophils # (Auto) 0.0 x10^3/uL (0.0-0.2) Platelet Estimate Adequate (ADEQUATE) Large Platelets Mod Giant Platelets Few Sodium Level 148 mmol/L (136-145) Potassium Level 4.9 mmol/L (3.5-5.1) Chloride Level 110 mmol/L (98-107) Carbon Dioxide Level 18 mmol/L (21-32) Anion Gap 20 (6-14) Blood Urea Nitrogen 24 mg/dL (7-20) Creatinine 1.0 mg/dL (0.6-1.0) Estimated GFR (Cockcroft-Gault) 54.1 Glucose Level 123 mg/dL (70-99) Calcium Level 9.1 mg/dL (8.5-10.1) Phosphorus Level 6.0 mg/dL (2.6-4.7) Magnesium Level 2.2 mg/dL (1.8-2.4) Assessment and Plan Assessmemt and Plan Problems Medical Problems: (1) Elevated liver enzymes Status: Acute (2) Mental status, decreased Status: Acute Comment Review of Relevant I have reviewed the following items kirsten (where applicable) has been applied. Medications: Current Medications Medications (Trade) Dose Ordered Sig/Javed Route PRN Reason Start Time Stop Time Status Last Admin Dose Admin Apixaban (Eliquis) 5 mg BID PO 02/02/21 14:15 02/03/21 08:25 Atorvastatin Calcium (Lipitor) 40 mg HS PO 02/02/21 21:00 02/02/21 22:01 Losartan Potassium (Cozaar) 25 mg HS PO 02/02/21 21:00 02/02/21 22:02 Metoprolol Succinate (Toprol Xl) 25 mg TID PO 02/02/21 15:00 02/03/21 11:05 DC 02/03/21 08:26 Furosemide (Lasix) 40 mg 1X ONCE IVP 02/02/21 16:00 02/02/21 16:01 DC 02/02/21 18:07 Potassium Chloride (Klor-Con) 40 meq 1X ONCE PO 02/02/21 16:00 02/02/21 16:01 DC 02/02/21 18:07 Justifications for Admission Other Justification Failure to thrive JO-ANN DANIELSON MD Feb 03, 2021 11:32
[2021-02-03 11:42] LABS: ALBUMIN 3.3 g/dL (3.4-5.0); DIRECT BILIRUBIN 1.1 mg/dL (0.0-0.2); TOTAL BILIRUBIN 2.4 mg/dL (0.2-1.0); TOTAL PROTEIN 6.3 g/dL (6.4-8.2)
[2021-02-03] MEDS ORDERED: DIGOXIN 125 MCG TABLET. PO ONE (12:00)
[2021-02-03 15:00] VITALS: BP 142/63
[2021-02-03 19:00] VITALS: BP 133/76
[2021-02-03] MEDS: traZODone 100 MG TABLET. PO SCH (19:31)
[2021-02-03] MEDS: LOSARTAN POTASSIUM 25 MG TABLET. PO SCH (19:31)
[2021-02-03] MEDS: ATORVASTATIN CALCIUM 40 MG TABLET. PO SCH (19:31)
[2021-02-03 23:00] VITALS: BP 125/84
[2021-02-04 03:00] VITALS: BP 143/81
[2021-02-04 07:00] VITALS: BP 126/84
--- NOTE | 2021-02-04 08:06 | RAD ---
Right upper quadrant ultrasound 02/04/2021 INDICATION: Elevated liver enzymes. COMPARISON STUDY: None Discussion: Ultrasound evaluation of the right upper quadrant was performed. Static images are submit nasreen to PACS. The liver is unremarkable in appearance and normal in size measuring 14 cm longitudinally. No focal h epatic lesions are identified. Hepatic echogenicity is normal. Small stones noted in the dependent portion of the gallbladder without evidence of wall thickening , Pericholecystic fluid, or significant sludge. The common bile duct is nondilated at 1 mm. No intrah epatic biliary dilatation is seen. The right kidney is unremarkable in appearance measuring 9 cm x 4 cm x 5 cm. IMPRESSION: 1.Cholelithiasis without evidence of acute cholecystitis. 2. Otherwise unremarkable sonographic appearance of the right upper quadrant Electronically signed by: Jasson Aguayo MD (02/04/2021 8:04 AM) [id number]
[2021-02-04 08:20] LABS: BASO % 0 % (0-3); EOS % 0 % (0-3); HEMATOCRIT 52.4 % (36.0-47.0); HEMOGLOBIN 16.9 g/dL (12.0-15.5); LYMPH # 2.7 x10^3/uL (1.0-4.8); LYMPH % 16 % (24-48); MEAN CORPUSCULAR HEMOGLOBIN 28 pg (25-35); MEAN CORPUSCULAR HGB CONC 32 g/dL (31-37); MEAN CORPUSCULAR VOLUME 86 fL (79-100); MONO # 1.2 x10^3/uL (0.0-1.1); MONO % 7 % (0-9); NEUT # 13.3 x10^3/uL (1.8-7.7); NEUT % 77 % (31-73); PLATELET COUNT 239 x10^3/uL (140-400); RED BLOOD COUNT 6.07 x10^6/uL (3.50-5.40); RED CELL DISTRIBUTION WIDTH 16.7 % (11.5-14.5); WHITE BLOOD COUNT 17.2 x10^3/uL (4.0-11.0)
[2021-02-04 08:36] LABS: CALCIUM 8.9 mg/dL (8.5-10.1); CREATININE 1.3 mg/dL (0.6-1.0); GFR 39.9; MAGNESIUM 2.3 mg/dL (1.8-2.4); POTASSIUM 4.4 mmol/L (3.5-5.1)
[2021-02-04] MEDS: APIXABAN 5 MG TABLET. PO SCH ×2 (09:00→18:53)
[2021-02-04] MEDS ORDERED: METOPROLOL SUCC 24HR ER 25 MG TAB.ER.24H. PO SCH (09:00)
[2021-02-04 09:36] LABS: % BANDS 3 % (0-9); % LYMPHS 10 % (24-48); % MONOS 1 % (0-10); % SEGS 86 % (35-66); PLT ESTIMATE ADEQUATE (ADEQUATE); POLYCHROMASIA PRESENT
--- NOTE | 2021-02-04 10:17 | PDOC ---
CRUZ HEWITT QUALITY IMPROVEMENT CONSULTANT 02/04/21 1017: CARDIO Progress Notes Date and Time Date of Service 02/04/2021 Time of Evaluation 1000 Subjective Subjective: Other (nonverbal) Vitals Vitals Vital Signs Date Time Temp Pulse Resp B/P (MAP) Pulse Ox O2 Delivery O2 Flow Rate FiO2 02/04/21 08:21 Room Air 02/04/21 07:00 98.4 91 18 126/84 (98) 96 98.4 Weight Weight [ ] Laboratory Labs Laboratory Tests Test 02/04/21 07:40 White Blood Count 17.2 x10^3/uL (4.0-11.0) Red Blood Count 6.07 x10^6/uL (3.50-5.40) Hemoglobin 16.9 g/dL (12.0-15.5) Hematocrit 52.4 % (36.0-47.0) Mean Corpuscular Volume 86 fL (79-100) Mean Corpuscular Hemoglobin 28 pg (25-35) Mean Corpuscular Hemoglobin Concent 32 g/dL (31-37) Red Cell Distribution Width 16.7 % (11.5-14.5) Platelet Count 239 x10^3/uL (140-400) Neutrophils (%) (Auto) 77 % (31-73) Lymphocytes (%) (Auto) 16 % (24-48) Monocytes (%) (Auto) 7 % (0-9) Eosinophils (%) (Auto) 0 % (0-3) Basophils (%) (Auto) 0 % (0-3) Neutrophils # (Auto) 13.3 x10^3/uL (1.8-7.7) Lymphocytes # (Auto) 2.7 x10^3/uL (1.0-4.8) Monocytes # (Auto) 1.2 x10^3/uL (0.0-1.1) Eosinophils # (Auto) 0.0 x10^3/uL (0.0-0.7) Basophils # (Auto) 0.0 x10^3/uL (0.0-0.2) Segmented Neutrophils % 86 % (35-66) Band Neutrophils % 3 % (0-9) Lymphocytes % 10 % (24-48) Monocytes % 1 % (0-10) Platelet Estimate Adequate (ADEQUATE) Polychromasia Present Sodium Level 150 mmol/L (136-145) Potassium Level 4.4 mmol/L (3.5-5.1) Chloride Level 109 mmol/L (98-107) Carbon Dioxide Level 23 mmol/L (21-32) Anion Gap 18 (6-14) Blood Urea Nitrogen 50 mg/dL (7-20) Creatinine 1.3 mg/dL (0.6-1.0) Estimated GFR (Cockcroft-Gault) 39.9 Glucose Level 123 mg/dL (70-99) Calcium Level 8.9 mg/dL (8.5-10.1) Magnesium Level 2.3 mg/dL (1.8-2.4) Physical Exam HEENT: Neck Supple W Full Motion Chest: Symmetric LUNGS: Clear to Auscultation Heart: RRR (SR) Abdomen: Soft N/T Extremities: No Edema Neurology: alert Assessment Assessment 1. Acute on chronic systolic CHF: compensated 2. Severe NICM: EF at 15-20% 3. PAFIB with RVR: maintaining SR 4. Probable severe and moderate MR 5. Alzheimers dementia: per PCP. recently noted. 6. FTT/anorexia: presently NPO due to risk of aspiration 7. DM2 8. HTN 9. Severe Transamintis: unclear etiology but perfusion issue could be contributing 10. DONTAE: likely from poor intake, dehydration Recommendations 1. Presently NPO. Will need IV access. Repeat LFTs and check INR. Abd sono did not reveal significnat hepatic anomalies except for gallstones. No abd pain. 2. Discussed significantly with spouse and interested in pursuing hospice. Her tank terminal gauger prognosis is poor with associated Alzheimers, anorexia. Conservative measures. 3. Poor hydration now NPO. Will need to start on IVF. Will consider for inotropic support, awaiting decision from spouse re hospice Justicifation of Admission Dx: Justifications for Admission: Justification of Admission Dx: Yes KHARI FIGUEROA MD 02/04/21 1256: CARDIO Progress Notes Assessment Assessment Patient seen and examined. Agree with CUSTOM DESIGNER's assessment and plan. Acute on chronic systolic heart failure better compensated 2D echo showed LVEF 15 to 20%, probable severe and moderate MR Agree with restarting beta-blockers for AF rate control. Continue Eliquis for stroke prophylaxis. Doubt if patient is a good candidate for more aggressive interventions secondary to her dementia Family considering hospice CRUZ HEWITT APRN 19, 2021 10:17 KHARI FIGUEROA MD Feb 04, 2021 12:56
--- NOTE | 2021-02-04 10:20 | NUR ---
SW following. Discussed with RN, pt from home with . Dr. Cano spoke with about hospice yesterday- wanting to speak with other family members. Per Dr. Cano, pt doing worse today and he plans to discuss hospice again with family. Pt having abdominal ultrasound today. PHILLIP will continue to follow. Addendum: 02/04/21 at 1642 by ROBE FISHER Family agreeable to hospice at home. PHILLIP tried [facility] however [facility] are currently full. PHILLIP spoke with [facility] slitting and shipping supervisor, they will attempt to reach the daughter in law (number not listed) and discuss options. Packet left with [facility]. RN notified.
[2021-02-04 10:38] LABS: ALBUMIN 3.4 g/dL (3.4-5.0); DIRECT BILIRUBIN 1.2 mg/dL (0.0-0.2); TOTAL BILIRUBIN 2.4 mg/dL (0.2-1.0); TOTAL PROTEIN 5.7 g/dL (6.4-8.2)
[2021-02-04 11:00] VITALS: BP 129/76
[2021-02-04] MEDS ORDERED: IV DEXTROSE 5% 1,000 ML IV ONE (11:00)
[2021-02-04] MEDS: METOPROLOL IV PUSH 5 MG/5 ML VIAL. IVP SCH ×2 (12:00→16:53)
--- NOTE | 2021-02-04 14:38 | PDOC ---
[facility] [facility] PROGRESS NOTE Date of Service DOS: DATE: 02/04/21 TIME: 14:36 Chief Complaint Chief Complaint Assessment/Plan Failure to thrive Generalized weakness Acute on chronic CHF, systolic CHF with LVEF 15-20% Elevated BNP suggestive of possible volume overload Mild transaminitis, possibly related to CHF or recent initiation of donepezil Acute hypoactive delirium with underlying dementia History of moderate to severe dementia History of paroxysmal atrial fibrillation normal sinus rhythm on Eliquis History of diabetes mellitus type 2 History of dyslipidemia Admit to hospitalist service for further management cardiology consult PT OT consult Speech evaluation Lasix IV x1 for elevated BNP; Cardiology consult We will hold centrally acting medications due to exacerbation of her dementia. Hold donepezil for now Eliquis for DVT prophylaxis ADA diet CODE STATUS DNR Discussed with RN and SW Disposition inpatient management as above DPOA: History of Present Illness History of Present Illness History obtained from discussion with the ED physician, the and chart review 75-year-old female with past medical history of diabetes mellitus type 2, dyslipidemia, hypertension, atrial fibrillation on Eliquis who comes in with decrease in appetite and alertness as per the . Over the past couple days she has had more decrease in appetite, lethargy, confusion. Patient already has some baseline dementia with some confusion but states that this has been worsening in the past 3 days. Patient was actually here 3 days ago for the same reason and evaluated by neurology in which she was discharged on donepezil. denies patient has fallen, just states she is not acting right. Denies fevers, endorses some vomiting this morning,. Denies diarrhea or hematuria or dysuria or syncope. 02/03 Patient evaluated examined at bedside. She was resting really would not arouse to voice. I discussed with the at bedside ongoing plan of care. I discussed with him the severity of her heart disease and how it may be difficult to manage with medications. I also discussed with him her CODE STATUS and he does endorse her being a DNR. Had a basic discussion of hospice with him and he was receptive. No decision made but He would like to discuss things with more family however. Cardiology following. 02/04 Patient evaluated examined at bedside. No major clinical changes she is still resting in bed. Discussed again with the and her dismal prognosis. He would not really make a decision but said if he were to pursue hospice they would want home hospice. We will try to follow-up with him again this afternoon. Encourage patient to discuss with family. Vitals/I&O Vitals/I&O: Vital Signs Date Time Temp Pulse Resp B/P (MAP) Pulse Ox O2 Delivery O2 Flow Rate FiO2 02/04/21 12:00 74 02/04/21 11:00 97.8 17 129/76 (93) 98 Room Air 97.8 Physical Exam General: Alert, Cooperative, No acute distress Heart: Other (AFIB RVR 120s 4/6 systolic murmur to apex and ESVIN border) Lungs: Clear Abdomen: Soft, No tenderness Extremities: No cyanosis, No edema Skin: No breakdown, No significant lesion Labs Labs: Laboratory Tests Test 02/04/21 07:40 White Blood Count 17.2 x10^3/uL (4.0-11.0) Red Blood Count 6.07 x10^6/uL (3.50-5.40) Hemoglobin 16.9 g/dL (12.0-15.5) Hematocrit 52.4 % (36.0-47.0) Mean Corpuscular Volume 86 fL (79-100) Mean Corpuscular Hemoglobin 28 pg (25-35) Mean Corpuscular Hemoglobin Concent 32 g/dL (31-37) Red Cell Distribution Width 16.7 % (11.5-14.5) Platelet Count 239 x10^3/uL (140-400) Neutrophils (%) (Auto) 77 % (31-73) Lymphocytes (%) (Auto) 16 % (24-48) Monocytes (%) (Auto) 7 % (0-9) Eosinophils (%) (Auto) 0 % (0-3) Basophils (%) (Auto) 0 % (0-3) Neutrophils # (Auto) 13.3 x10^3/uL (1.8-7.7) Lymphocytes # (Auto) 2.7 x10^3/uL (1.0-4.8) Monocytes # (Auto) 1.2 x10^3/uL (0.0-1.1) Eosinophils # (Auto) 0.0 x10^3/uL (0.0-0.7) Basophils # (Auto) 0.0 x10^3/uL (0.0-0.2) Segmented Neutrophils % 86 % (35-66) Band Neutrophils % 3 % (0-9) Lymphocytes % 10 % (24-48) Monocytes % 1 % (0-10) Platelet Estimate Adequate (ADEQUATE) Polychromasia Present Sodium Level 150 mmol/L (136-145) Potassium Level 4.4 mmol/L (3.5-5.1) Chloride Level 109 mmol/L (98-107) Carbon Dioxide Level 23 mmol/L (21-32) Anion Gap 18 (6-14) Blood Urea Nitrogen 50 mg/dL (7-20) Creatinine 1.3 mg/dL (0.6-1.0) Estimated GFR (Cockcroft-Gault) 39.9 Glucose Level 123 mg/dL (70-99) Calcium Level 8.9 mg/dL (8.5-10.1) Magnesium Level 2.3 mg/dL (1.8-2.4) Total Bilirubin 2.4 mg/dL (0.2-1.0) Direct Bilirubin 1.2 mg/dL (0.0-0.2) Aspartate Amino Transf (AST/SGOT) 5319 U/L (15-37) Alanine Aminotransferase (ALT/SGPT) 4379 U/L (14-59) Alkaline Phosphatase 230 U/L (46-116) Total Protein 5.7 g/dL (6.4-8.2) Albumin 3.4 g/dL (3.4-5.0) Assessment and Plan Assessmemt and Plan Problems Medical Problems: (1) Elevated liver enzymes Status: Acute (2) Mental status, decreased Status: Acute Comment Review of Relevant I have reviewed the following items kirsten (where applicable) has been applied. Justifications for Admission Other Justification Failure to thrive JO-ANN DANIELSON MD Feb 04, 2021 14:38
[2021-02-04 15:00] VITALS: BP 133/83
[2021-02-04 16:06] LABS: PROTHROMBIN TIME PATIENT 53.3 SEC (11.7-14.0)
--- NOTE | 2021-02-04 16:50 | NUR ---
This RN nonadministered IV fluids/IV medications as pt has no venous access. Dr. Cano spoke with family in regards to goals of care. Decision made for home with hospice.
[2021-02-04] MEDS: traZODone 100 MG TABLET. PO SCH (18:53)
[2021-02-04] MEDS: LOSARTAN POTASSIUM 25 MG TABLET. PO SCH (18:53)
[2021-02-04] MEDS: ATORVASTATIN CALCIUM 40 MG TABLET. PO SCH (18:53)
[2021-02-04 19:00] VITALS: BP 128/57
[2021-02-04] MEDS ORDERED: GLYCOPYRROLATE 1 MG/5 ML VIAL. IV PRN (21:30)
[2021-02-04 23:00] VITALS: BP 131/56
[2021-02-05 03:00] VITALS: BP 111/72
[2021-02-05 07:00] VITALS: BP 159/78
[2021-02-05] MEDS: APIXABAN 5 MG TABLET. PO SCH (07:53)
[2021-02-05 09:16] LABS: BASO % 0 % (0-3); EOS % 0 % (0-3); HEMATOCRIT 54.2 % (36.0-47.0); HEMOGLOBIN 17.1 g/dL (12.0-15.5); LYMPH # 1.6 x10^3/uL (1.0-4.8); LYMPH % 11 % (24-48); MEAN CORPUSCULAR HEMOGLOBIN 28 pg (25-35); MEAN CORPUSCULAR HGB CONC 32 g/dL (31-37); MEAN CORPUSCULAR VOLUME 87 fL (79-100); MONO # 0.8 x10^3/uL (0.0-1.1); MONO % 6 % (0-9); NEUT # 12.4 x10^3/uL (1.8-7.7); NEUT % 84 % (31-73); PLATELET COUNT 239 x10^3/uL (140-400); RED BLOOD COUNT 6.22 x10^6/uL (3.50-5.40); RED CELL DISTRIBUTION WIDTH 17.2 % (11.5-14.5); WHITE BLOOD COUNT 14.8 x10^3/uL (4.0-11.0)
[2021-02-05 09:29] LABS: CALCIUM 9.2 mg/dL (8.5-10.1); CREATININE 1.3 mg/dL (0.6-1.0); GFR 39.9; MAGNESIUM 2.7 mg/dL (1.8-2.4); POTASSIUM 4.9 mmol/L (3.5-5.1)
[2021-02-05 11:00] VITALS: BP 89/65
--- NOTE | 2021-02-05 11:18 | PDOC ---
[facility] [facility] PROGRESS NOTE Date of Service DOS: DATE: 02/05/21 TIME: 11:17 Chief Complaint Chief Complaint Assessment/Plan Failure to thrive Generalized weakness Acute on chronic CHF, systolic CHF with LVEF 15-20% Elevated BNP suggestive of possible volume overload Mild transaminitis, possibly related to CHF or recent initiation of donepezil Acute hypoactive delirium with underlying dementia History of moderate to severe dementia History of paroxysmal atrial fibrillation normal sinus rhythm on Eliquis History of diabetes mellitus type 2 History of dyslipidemia Continue comfort treatments with transition to home hospice hopefully today History of Present Illness History of Present Illness History obtained from discussion with the ED physician, the and chart review 75-year-old female with past medical history of diabetes mellitus type 2, dyslipidemia, hypertension, atrial fibrillation on Eliquis who comes in with decrease in appetite and alertness as per the . Over the past couple days she has had more decrease in appetite, lethargy, confusion. Patient already has some baseline dementia with some confusion but states that this has been worsening in the past 3 days. Patient was actually here 3 days ago for the same reason and evaluated by neurology in which she was discharged on donepezil. denies patient has fallen, just states she is not acting right. Denies fevers, endorses some vomiting this morning,. Denies diarrhea or hematuria or dysuria or syncope. 02/03 Patient evaluated examined at bedside. She was resting really would not arouse to voice. I discussed with the at bedside ongoing plan of care. I d iscussed with him the severity of her heart disease and how it may be difficult to manage with medications. I also discussed with him her CODE STATUS and he does endorse her being a DNR. Had a basic discussion of hospice with him and he was receptive. No decision made but He would like to discuss things with more family however. Cardiology following. 02/04 Patient evaluated examined at bedside. No major clinical changes she is still resting in bed. Discussed again with the and her dismal prognosis. He would not really make a decision but said if he were to pursue hospice they would want home hospice. We will try to follow-up with him again this afternoon. Encourage patient to discuss with family. 02/05 Patient evaluated examined at bedside. Had a long discussion with family yesterday in the evening regarding prognosis. After some discussion they did decide home with hospice. Unable to get set up yesterday afternoon due to preferred hospice being full. Contacted nursing supervisor loading this morning to see if any options available on the weekend. If accepted could possibly discharge today. Vitals/I&O Vitals/I&O: Vital Signs Date Time Temp Pulse Resp B/P (MAP) Pulse Ox O2 Delivery O2 Flow Rate FiO2 02/05/21 07:00 97.4 140 16 159/78 (105) 95 Room Air 97.4 Physical Exam General: Alert, Cooperative, No acute distress Heart: Other (AFIB RVR 120s 4/6 systolic murmur to apex and ESVIN border) Lungs: Clear Abdomen: Soft, No tenderness Extremities: No cyanosis, No edema Skin: No breakdown, No significant lesion Labs Labs: Laboratory Tests Test 02/04/21 15:50 02/05/21 08:00 Prothrombin Time 53.3 SEC (11.7-14.0) Prothromb Time International Ratio 6.2 (0.8-1.1) White Blood Count 14.8 x10^3/uL (4.0-11.0) Red Blood Count 6.22 x10^6/uL (3.50-5.40) Hemoglobin 17.1 g/dL (12.0-15.5) Hematocrit 54.2 % (36.0-47.0) Mean Corpuscular Volume 87 fL (79-100) Mean Corpuscular Hemoglobin 28 pg (25-35) Mean Corpuscular Hemoglobin Concent 32 g/dL (31-37) Red Cell Distribution Width 17.2 % (11.5-14.5) Platelet Count 239 x10^3/uL (140-400) Neutrophils (%) (Auto) 84 % (31-73) Lymphocytes (%) (Auto) 11 % (24-48) Monocytes (%) (Auto) 6 % (0-9) Eosinophils (%) (Auto) 0 % (0-3) Basophils (%) (Auto) 0 % (0-3) Neutrophils # (Auto) 12.4 x10^3/uL (1.8-7.7) Lymphocytes # (Auto) 1.6 x10^3/uL (1.0-4.8) Monocytes # (Auto) 0.8 x10^3/uL (0.0-1.1) Eosinophils # (Auto) 0.0 x10^3/uL (0.0-0.7) Basophils # (Auto) 0.0 x10^3/uL (0.0-0.2) Sodium Level 152 mmol/L (136-145) Potassium Level 4.9 mmol/L (3.5-5.1) Chloride Level 113 mmol/L (98-107) Carbon Dioxide Level 18 mmol/L (21-32) Anion Gap 21 (6-14) Blood Urea Nitrogen 63 mg/dL (7-20) Creatinine 1.3 mg/dL (0.6-1.0) Estimated GFR (Cockcroft-Gault) 39.9 Glucose Level 129 mg/dL (70-99) Calcium Level 9.2 mg/dL (8.5-10.1) Magnesium Level 2.7 mg/dL (1.8-2.4) Assessment and Plan Assessmemt and Plan Problems Medical Problems: (1) Elevated liver enzymes Status: Acute (2) Mental status, decreased Status: Acute Comment Review of Relevant I have reviewed the following items kirsten (where applicable) has been applied. Justifications for Admission Other Justification Failure to thrive JO-ANN DANIELSON MD Feb 05, 2021 11:18
--- NOTE | 2021-02-05 13:00 | NUR ---
Patient being medicated for signs of pain/discomfort. Resp rate 36-38. Patient opening eyes this am when turned towards , unable to tell if tracking. Patient not verbalizing. , family at bedside, very attentive towards patient, supportive of each other. Pt given fan, placed on low speed for comfort. Courtesy refreshments obtained for family. Patient given oral care, including moisturizer for mouth.
[2021-02-05] MEDS: MORPHINE SULFATE 20 MG/ML CONC SOLUTION. SL PRN ×2 (13:25→17:17)
[2021-02-05 15:00] VITALS: BP 157/81
--- NOTE | 2021-02-05 16:30 | NUR ---
Awaiting hospice eval (banquet kitchen supervisor arranging). Discharge not anticipated for today, family was informed. Pt less restless this evening, family has remained with patient. was going to be staying (approval was obtained through banquet kitchen supervisor).
--- NOTE | 2021-02-05 17:15 | NUR ---
Patient back to right side, resp easier. Pt given first part of roxanol dose for comfort. Pt continues to be tachycardic, rate 150's at this time.
--- NOTE | 2021-02-05 18:16 | NUR ---
Patient heart rate bradycardic at this time, in upper 30's, apneic. at bedside holding pt's hand.
--- NOTE | 2021-02-05 18:20 | NUR ---
Daughter in law notified that patient passing per 's request, will notify other family members and come to hospital.
--- NOTE | 2021-02-05 18:40 | NUR ---
Patient pronounced at [address] Leonardo notified. removed patient's wedding rings, remained at bedside.
== END 2021-02-05 18:27 | DRG 291 ==
LOC: ER 09:32 → ED HOLD 13:30 → 5 NORTH 22:45
PROVIDERS: ADMIT Internal Medicine; ATTEND Internal Medicine
DX: I11.0 Hypertensive heart disease with heart failure (principal); I50.23 Acute on chronic systolic (congestive) heart failure; N17.0 Acute kidney failure with tubular necrosis; J96.01 Acute respiratory failure with hypoxia; I42.8 Other cardiomyopathies; E11.9 Type 2 diabetes mellitus without complications; E78.00 Pure hypercholesterolemia, unspecified; E78.5 Hyperlipidemia, unspecified; E86.0 Dehydration; F02.80 Dementia in other diseases classified elsewhere, unspecified severity, without behavioral disturbance, psychotic disturbance, mood disturbance, and anxiety; G30.9 Alzheimer's disease, unspecified; I48.0 Paroxysmal atrial fibrillation; R62.7 Adult failure to thrive; Z66 Do not resuscitate; Z79.01 Long term (current) use of anticoagulants; Z82.49 Family history of ischemic heart disease and other diseases of the circulatory system; Z90.710 Acquired absence of both cervix and uterus; Z96.659 Presence of unspecified artificial knee joint; M19.90 Unspecified osteoarthritis, unspecified site
CPT/HCPCS: 36415; 70450; 71045; 76705; 80048; 80053; 80076; 81001; 82140; 83735; 83880; 84100; 84443; 84484; 85007; 85025; 85610; 87426; 87804; 93005; 93306; J1940; U0003; U0005; 92526-GN; 92610-GN; 97530-GP; 99285-25; G0378